=== PATIENT | male | born 1945 | race American Indian/Alaskan Native ===

== ENCOUNTER 2020-10-08 10:47 | Inpatient (IN) ==
--- NOTE | 2020-10-08 10:59 | Emergency Department Note ---
Lower Extremity Injury HPI General Chief Complaint: Extremity Injury, Lower Stated Complaint: right hip pain Time Seen by Provider: 10/08/20 10:57 Source: patient Mode of arrival: wheelchair Limitations: no limitations History of Present Illness HPI Narrative: This is an unfortunate 74-year-old male who was brought in by EMS today after he was found lying on his floor and unable to ambulate. Patient states that he is been unable to walk for the past 4 days and has been unable to eat or drink secondary to right hip pain. The patient suffered a femur fracture in the with a subsequent ORIF of his femur. He was seen in August in our ER for right hip pain, was ruled out for fracture. Patient lives alone at home. He does have cousins in the area, but they do not provide assistance regularly. He is a bit confused and cannot recall things like what he used to do for living, or tell me why he has a large incision to his left hip. He does know he is in [place]. He sees the [facility] clinic and he is on a multitude of prescriptions including mirtazapine, tizanidine, trazodone, and tramadol. He cannot remember which one of these he is taken. Rest of his history is difficult to obtain secondary to his altered mental status. Related Data Home Medications Medication Instructions Recorded Confirmed atorvastatin 10 mg PO QDAY 10/08/20 10/08/20 meloxicam 15 mg PO QDAY 10/08/20 10/08/20 mirtazapine 15 mg PO QDAY 10/08/20 10/08/20 tizanidine 4 mg PO Q6H PRN 10/08/20 10/08/20 tramadol 50 mg PO Q8H PRN 10/08/20 10/08/20 trazodone 50 mg PO QDAY 10/08/20 10/08/20 Allergies Allergy/AdvReac Type Severity Reaction Status Date / Time No Known Drug Allergies Allergy Verified 10/08/20 10:51 Review of Systems ROS ROS Narrative: Narrative: Limitations: ROS unobtainable due to patients medical condition [facility] Narrative Patient History Narrative: Narrative: Medical/Surgical/Family History All Active Problems (Updated 10/08/20 @ 19:33 by Beverly Villagomez PA-C) Pain in right thigh (Acute) History of femur fracture (Acute) Osteoarthritis (Acute) Localized swelling of both lower extremities (Acute) Joint pain of right hip on movement (Acute) Alteration in self-care ability (Acute) Ambulatory dysfunction (Acute) Rhabdomyolysis (Acute) Osteoarthritis of knees, bilateral (Acute) Prediabetes (Acute) Essential hypertension (Acute) Medical History Chronic right hip pain (Acute) Essential hypertension (Acute) Osteoarthritis of knees, bilateral (Acute) Prediabetes (Acute) Social History Smoking Status: Never smoker Exam Narrative Narrative: General: AOx3, NAD, nontoxic appearing. Confused and lethargic. HEENT: PERRLA, EOMI, normocephalic. Very dry mucous membranes. Normal facies and extremely poor dentition with multiple missing teeth.. Chest: Symmetric, no pain to palpation Respiratory: Lungs clear to auscultation bilaterally. No respiratory distress. Unlabored breathing. Heart: Regular rate and rhythm, no murmurs/clicks/rubs. Abdomen: Non-tender, Non distended, normal bowel tones. No organomegaly. Extremities: Warm and well perfused. No edema. DP 2+ bilaterally. No venous stasis. Pelvis: No deformities Right lower extremity: Without deformity or evidence of dislocation. He is painful to palpation along the anterior femur and into the right groin. He has pain with internal rotation of the hip. Knee flexion within normal limits. No pain with palpation of the knee joint or patella. Neuro: No focal deficits. Cranial nerves II-XII normal. Moving all fours with strength 5 out of 5 bilaterally to the extremities. Skin: Warm dry, excoriations noted to the bilateral lower extremities, no cyanosis. No erythema, no evidence of cellulitis. Psych: Confused, lethargic Heme/Lymph: No bruising General Limitations: no limitations Course Course Course Narrative: 74-year-old male presents via EMS with severe right hip pain, ambulatory dysfunction, and significant self-care deficits. Reevaluation(s) Reevaluation #1: Team basic labs, CK to query rhabdomyolysis, chest x-ray, UA IV fluids Reevaluation #2: Laboratory data reveals a mild leukocytosis with a high neutrophil count. He has an elevated procalcitonin of 0.25. He has a mild rhabdo with a CK of 406. UA is still pending. Chest x-ray shows prominent interstitial lung markings bilaterally, possible pneumonia. X-ray of the right hip and bilateral pelvis reveals no new fractures. There is a intertrochanteric nail in the right femur, and there is evidence of a greater trochanteric and right acetabular ORIF without evidence of associated fracture. This patient has altered mental status with profound self-care deficits, ambulatory dysfunction, and mild rhabdomyolysis with infection and SIRS. Source could be lung versus a urosepsis. UA is still pending. The patient is going to need admission and likely placement so we will order the 2-hour Covid rule out. Once UA results will place call to hospitalist for admission. -We will give 2 g IV Rocephin now x1 dose -Blood cultures x2 in the setting of hardware (these were collected post IV Rocephin) -Check a CRP Reevaluation #3: The patient is interviewed after he has been given IV fluids and antibiotics. He is much more alert and able to tell me the month, year, and his location. He states that his pain has been ongoing for anywhere from 3 to 4 months. There was no traumatic injury. He denies fever/chills/sweats. Vital Signs Vital signs: Vital Signs Temperature 97.9 F 10/08/20 10:48 Pulse Rate 90 10/08/20 10:48 Respiratory Rate 16 10/08/20 10:48 Blood Pressure 125/86 10/08/20 10:48 Pulse Oximetry (%) 98 10/08/20 10:48 Temperature 97.9 F 10/08/20 10:48 Pulse Rate 86 10/08/20 18:31 Respiratory Rate 24 H 10/08/20 18:31 Blood Pressure 132/86 10/08/20 18:31 Pulse Oximetry (%) 99 10/08/20 18:31 [facility] Narrative Medical decision making narrative: Right hip and lower extremity pain Ambulatory dysfunction Self-care deficits Mild rhabdomyolysis SIRS and infection Source of infection is not clear at this time. Chest x-ray suggested possible pneumonia; however the patient's clinical exam is unremarkable and he has been satting on room air at normal levels. The patient does have indwelling hardware with complaints of right hip and leg pain. I suppose it is possible this could be an osteomyelitis. He does have elevated procalcitonin and a leukocytosis with left shift. Regardless, he has significant self-care deficits with mild rhabdomyolysis from downtime on the floor. He does not have a caregiver at home and is not a safe discharge. He will need admission for ongoing infectious work-up, antibiotic therapies, and PT OT. -The patient is signed out to the hospitalist and admitted -Given IV Toradol and Dilaudid for pain -Blood cultures x2 are pending -CRP is pending -Cepheid Covid screen is pending Lab Data Result diagrams: 10/08/20 11:46 10/08/20 11:46 Labs: Lab Results 10/08/20 10/08/20 10/08/20 Range/Units 11:46 11:46 11:46 WBC 15.0 H (4.5-11.0) K/mcL RBC 3.99 L (4.50-5.90) M/mcL Hgb 11.4 L (13.5-16.5) g/dL Hct 34.0 L (41.0-55.0) % MCV 85.2 (80.0-100.0) fL MCH 28.6 (26.0-34.0) pg MCHC 33.5 (31.0-36.0) g/dL RDW 16.3 H (11.5-14.5) % Plt Count 327 (140-440) K/mcL MPV 9.9 (7.4-10.4) fL Neut % (Auto) 82.4 H (38.0-78.0) % Lymph % (Auto) 8.6 L (15.0-49.0) % [place] % (Auto) 8.6 (1.0-12.0) % Eos % (Auto) 0.1 (0.0-7.0) % Baso % (Auto) 0.3 (0.0-2.0) % Lymph # (Auto) 1.29 L (1.50-4.80) K/mcL [place] # (Auto) 1.30 H (0.10-0.90) K/mcL Eos # (Auto) 0.01 (0.00-0.70) K/mcL Baso # (Auto) 0.04 (0.00-0.20) K/mcL Absolute Neutrophils 12.40 H (1.80-8.00) K/mcL VBG Lactic Acid (0.5-2.0) mmol/L Sodium 138 (133-145) mmol/L Potassium 4.2 (3.3-5.1) mmol/L Chloride 100 (96-108) mmol/L Carbon Dioxide 23 (22-30) mmol/L Anion Gap 15.0 (8.0-16.0) BUN 17 (8-23) mg/dL Creatinine 0.8 (0.7-1.2) mg/dL GFR Calculation 88 Glucose 107 H (70-105) mg/dL Calcium 8.6 (8.6-10.4) mg/dL Total Bilirubin 0.7 (0.1-1.0) mg/dL AST 48 H (<40) U/L ALT 10 (<40) U/L Alkaline Phosphatase 728 H (39-117) U/L Total Creatine Kinase 406 H (24-195) U/L C-Reactive Protein (0.03-0.80) mg/dL Total Protein 6.3 (5.9-8.4) gm/dL Albumin 3.1 L (3.2-5.2) gm/dL Globulin 3.2 (2.2-3.7) gm/dL Albumin/Globulin Ratio 1.0 (1.0-2.3) Procalcitonin (<0.10) ng/mL Urine Color Urine Appearance (Clear) Urine pH (5.0-9.0) Ur Specific [place] (1.000-1.035) Urine Protein (Negative) mg/dL Urine Glucose (UA) (Negative) mg/dL Urine Ketones (Negative) mg/dL Urine Occult Blood (Negative) mg/dL Urine Nitrate (Negative) Urine Bilirubin (Negative) mg/dL Urine Urobilinogen mg/dL Ur Leukocyte Esterase (Negative) /ug Urine RBC (0-3) /hpf Urine WBC (0-4) /hpf Ur Squamous Epith Cells (0-4) /hpf Ur Transition Epith Cell (0-2) /hpf Urine Bacteria (0) /hpf Hyaline Casts (0-2) /lph Urine Mucus (None) /hpf Ur Culture Indicated? 10/08/20 10/08/20 10/08/20 Range/Units 11:46 15:40 16:15 WBC (4.5-11.0) K/mcL RBC (4.50-5.90) M/mcL Hgb (13.5-16.5) g/dL Hct (41.0-55.0) % MCV (80.0-100.0) fL MCH (26.0-34.0) pg MCHC (31.0-36.0) g/dL RDW (11.5-14.5) % Plt Count (140-440) K/mcL MPV (7.4-10.4) fL Neut % (Auto) (38.0-78.0) % Lymph % (Auto) (15.0-49.0) % [place] % (Auto) (1.0-12.0) % Eos % (Auto) (0.0-7.0) % Baso % (Auto) (0.0-2.0) % Lymph # (Auto) (1.50-4.80) K/mcL [place] # (Auto) (0.10-0.90) K/mcL Eos # (Auto) (0.00-0.70) K/mcL Baso # (Auto) (0.00-0.20) K/mcL Absolute Neutrophils (1.80-8.00) K/mcL VBG Lactic Acid 2.1 H (0.5-2.0) mmol/L Sodium (133-145) mmol/L Potassium (3.3-5.1) mmol/L Chloride (96-108) mmol/L Carbon Dioxide (22-30) mmol/L Anion Gap (8.0-16.0) BUN (8-23) mg/dL Creatinine (0.7-1.2) mg/dL GFR Calculation Glucose (70-105) mg/dL Calcium (8.6-10.4) mg/dL Total Bilirubin (0.1-1.0) mg/dL AST (<40) U/L ALT (<40) U/L Alkaline Phosphatase (39-117) U/L Total Creatine Kinase (24-195) U/L C-Reactive Protein 24.30 H (0.03-0.80) mg/dL Total Protein (5.9-8.4) gm/dL Albumin (3.2-5.2) gm/dL Globulin (2.2-3.7) gm/dL Albumin/Globulin Ratio (1.0-2.3) Procalcitonin (<0.10) ng/mL Urine Color Yellow Urine Appearance Clear (Clear) Urine pH 6.0 (5.0-9.0) Ur Specific [place] 1.017 (1.000-1.035) Urine Protein 30 A (Negative) mg/dL Urine Glucose (UA) Negative (Negative) mg/dL Urine Ketones 5 A (Negative) mg/dL Urine Occult Blood Negative (Negative) mg/dL Urine Nitrate Negative (Negative) Urine Bilirubin Negative (Negative) mg/dL Urine Urobilinogen 2.0 A mg/dL Ur Leukocyte Esterase Negative (Negative) /ug Urine RBC 2 (0-3) /hpf Urine WBC 10 H (0-4) /hpf Ur Squamous Epith Cells 2 (0-4) /hpf Ur Transition Epith Cell < 1 (0-2) /hpf Urine Bacteria None (0) /hpf Hyaline Casts 6 H (0-2) /lph Urine Mucus Many A (None) /hpf Ur Culture Indicated? yes 10/08/20 Range/Units 16:15 WBC (4.5-11.0) K/mcL RBC (4.50-5.90) M/mcL Hgb (13.5-16.5) g/dL Hct (41.0-55.0) % MCV (80.0-100.0) fL MCH (26.0-34.0) pg MCHC (31.0-36.0) g/dL RDW (11.5-14.5) % Plt Count (140-440) K/mcL MPV (7.4-10.4) fL Neut % (Auto) (38.0-78.0) % Lymph % (Auto) (15.0-49.0) % [place] % (Auto) (1.0-12.0) % Eos % (Auto) (0.0-7.0) % Baso % (Auto) (0.0-2.0) % Lymph # (Auto) (1.50-4.80) K/mcL [place] # (Auto) (0.10-0.90) K/mcL Eos # (Auto) (0.00-0.70) K/mcL Baso # (Auto) (0.00-0.20) K/mcL Absolute Neutrophils (1.80-8.00) K/mcL VBG Lactic Acid (0.5-2.0) mmol/L Sodium (133-145) mmol/L Potassium (3.3-5.1) mmol/L Chloride (96-108) mmol/L Carbon Dioxide (22-30) mmol/L Anion Gap (8.0-16.0) BUN (8-23) mg/dL Creatinine (0.7-1.2) mg/dL GFR Calculation Glucose (70-105) mg/dL Calcium (8.6-10.4) mg/dL Total Bilirubin (0.1-1.0) mg/dL AST (<40) U/L ALT (<40) U/L Alkaline Phosphatase (39-117) U/L Total Creatine Kinase (24-195) U/L C-Reactive Protein (0.03-0.80) mg/dL Total Protein (5.9-8.4) gm/dL Albumin (3.2-5.2) gm/dL Globulin (2.2-3.7) gm/dL Albumin/Globulin Ratio (1.0-2.3) Procalcitonin 0.25 H (<0.10) ng/mL Urine Color Urine Appearance (Clear) Urine pH (5.0-9.0) Ur Specific [place] (1.000-1.035) Urine Protein (Negative) mg/dL Urine Glucose (UA) (Negative) mg/dL Urine Ketones (Negative) mg/dL Urine Occult Blood (Negative) mg/dL Urine Nitrate (Negative) Urine Bilirubin (Negative) mg/dL Urine Urobilinogen mg/dL Ur Leukocyte Esterase (Negative) /ug Urine RBC (0-3) /hpf Urine WBC (0-4) /hpf Ur Squamous Epith Cells (0-4) /hpf Ur Transition Epith Cell (0-2) /hpf Urine Bacteria (0) /hpf Hyaline Casts (0-2) /lph Urine Mucus (None) /hpf Ur Culture Indicated? Discharge Plan Patient/Caregiver Discharge Instructions Pt seen by [employer]/PA only: Yes Clinical Impression: Joint pain of right hip on movement, History of femur fracture, Alteration in self-care ability, Ambulatory dysfunction, Rhabdomyolysis Patient Disposition: Xfer As Inpt ([facility]) Condition: Fair Follow up with: No,PCP [Primary Care Provider] - Prescriptions: No Action trazodone 50 mg Tablet 50 mg PO QDAY RF: 0 atorvastatin 10 mg tablet 10 mg PO QDAY RF: 0 meloxicam 15 mg tablet 15 mg PO QDAY RF: 0 tramadol 50 mg Tablet 50 mg PO Q8H PRN (Reason: Pain) RF: 0 mirtazapine 15 mg Tablet 15 mg PO QDAY RF: 0 tizanidine 4 mg Capsule 4 mg PO Q6H PRN (Reason: .) RF: 0
--- NOTE | 2020-10-08 11:45 | XRay Report ---
INDICATION: hip pain TECHNIQUE: AP pelvis. AP and lateral right hip COMPARISON: Previous right femur dated 09/07/2020 FINDINGS: There is an intramedullary nail within the right femur. Caudal aspects of the intramedullary nail are not included on this examination. There is deformity of the proximal right femoral diaphysis consistent with healed fracture. There is mild degenerative narrowing of the right hip joint space. No right hip fracture. No evidence for avascular necrosis Previous open reduction and internal fixation of left greater trochanteric fracture and acetabular fracture. No acute fracture. No hip fracture. No lytic lesion. Sacrum is negative. There is prominent fecal material overlying the sacrum and right ilium IMPRESSION: 1. No acute abnormality 2. Previous open reduction and internal fixation of left acetabular fracture and greater trochanteric fracture. Intramedullary nail in the right femur with healed fracture deformity of the proximal right femoral diaphysis Interpreted and Authenticated by: Leonidas Gr 10/08/20
[2020-10-08] MEDS ORDERED: 0.9 % SODIUM CHLORIDE 1,000 ML IV ONE ×2 (12:49→14:42)
[2020-10-08 12:50] LABS: Basophils # (Auto) 0.04 K/mcL (0.00-0.20); Basophils % (Auto) 0.3 % (0.0-2.0); Eosinophils # (Auto) 0.01 K/mcL (0.00-0.70); Eosinophils % (Auto) 0.1 % (0.0-7.0); Hemoglobin 11.4 g/dL (13.5-16.5); Lymphocytes # (Auto) 1.29 K/mcL (1.50-4.80); Lymphocytes % (Auto) 8.6 % (15.0-49.0); Mean Cell Volume 85.2 fL (80.0-100.0); Mean Corpuscular HGB Conc 33.5 g/dL (31.0-36.0); Mean Platelet Volume 9.9 fL (7.4-10.4); Monocytes % (Auto) 8.6 % (1.0-12.0); Neutrophils % (Auto) 82.4 % (38.0-78.0); Platelet Count 327 K/mcL (140-440); RBC 3.99 M/mcL (4.50-5.90); Red Cell Distribution Width 16.3 % (11.5-14.5)
[2020-10-08 13:13] LABS: ALT/SGPT 10 U/L (<40); AST/SGOT 48 U/L (<40); Albumin 3.1 gm/dL (3.2-5.2); Alkaline Phosphatase 728 U/L (39-117); Bilirubin,Total 0.7 mg/dL (0.1-1.0); Blood Urea Nitrogen 17 mg/dL (8-23); Calcium 8.6 mg/dL (8.6-10.4); Carbon Dioxide 23 mmol/L (22-30); Chloride 100 mmol/L (96-108); Globulin 3.2 gm/dL (2.2-3.7); Glomerular Filtration Rate 88; Glucose 107 mg/dL (70-105)
--- NOTE | 2020-10-08 15:02 | XRay Report ---
INDICATION: leukocytosis TECHNIQUE: AP portable upright chest x-ray COMPARISON: None FINDINGS: Lungs:Interstitial markings are prominent bilaterally. This may be a chronic abnormality in this 74-year-old patient. If covid pneumonia is suspected follow-up examination or CT scan may be of help. No parenchymal consolidation. No interval mass Heart, vascular:No significant cardiomegaly. Pulmonary vascularity is normal. No pulmonary edema or pulmonary congestion Mediastinum, ozzie:No mediastinal widening. No hilar mass Pleura:No pleural fluid. No pleural-based mass or calcification Skeletal:Negative. IMPRESSION: 1. Interstitial abnormality bilaterally. 2. This may be a chronic abnormality. Covid pneumonia is not excluded Interpreted and Authenticated by: Leonidas Gr 10/08/20
[2020-10-08] MEDS ORDERED: cefTRIAXone 2 GM in DEXTROSE 5% IN WATER 50 ML IV ONE (16:29)
[2020-10-08 16:56] LABS: Appearance,Urine CLEAR (Clear); Bilirubin,Urine Negative (Negative); Color,Urine YELLOW; Culture Indicated,Urine yes; Glucose,Urine (UA) Negative (Negative); Ketones,Urine 5 mg/dL (Negative); Leukocyte Esterase,Urine Negative /ug (Negative); Mucus,Urine MANY /hpf; Nitrate,Urine Negative (Negative); Protein,Urine 30 mg/dL (Negative); Specific Gravity,Urine 1.017 (1.000-1.035); Urine Blood Negative (Negative); Urine Hyaline Cast 6 /lph (0-2); Urine RBC 2 /hpf (0-3); Urine Squamous Epithelial Cell 2 /hpf (0-4); Urine Transitional Epi Cells < 1 /hpf (0-2); Urine WBC 10 /hpf (0-4)
[2020-10-08] MEDS ORDERED: KETOROLAC 30 MG/ML VIAL IV ONE (18:05)
--- NOTE | 2020-10-08 19:31 | Internal Med History&Physical ---
HPI History of Present Illness Patient information: Note initiated : 10/08/20 at 7:23 pm Service Date, if different from initiated Date: [] Patient: Larry Barger a 74 y/o M admitted on for right hip pain. Chief Complaint: [] History of present illness: Mr. Barger is a 74 year old M with history of HLD/chronic pain/anxiety who has been experiencing significant right hip along with right knee pain that has gradually limited his activities of daily living. He lives alone and over the past 4-month has not been able to take care of self due to pain related restricting mobility. Over the last 4 days patient has been so weak that he has been laying on the blanket on the floor and has been crawling to get to the bathroom and food. In the last 24 hours he has not eating or drank anything. He was brought into the ER initial work-up was consistent with severe dehydration. White count 15,000 but no clear source of infection identified. Patient was started on antibiotic coverage after cultures were drawn. Patient received crystalloids. Lactic acid 2.1, elevated CK and procalcitonin. UA significant for pyuria. Chest imaging suspicious of interstitial infiltrate. Hospital service was consulted for admission in light of above At the time of my evaluation patient is very anxious and was able to endorse history as above. He mentions about his degenerative knee which he has not been able to see orthopedics. He since has been struggling to get by on a daily basis. He otherwise denies fever, chills, bloody stool, bloody urine, hemoptysis, headache, rash. Denies joint swelling but endorses to bilateral knee pain and right groin pain. Review of systems 10 point review system was performed and is negative except for ones discussed above PFSH PFSH All Active Problems Pain in right thigh (Acute) History of femur fracture (Acute) Osteoarthritis (Acute) Localized swelling of both lower extremities (Acute) Osteoarthritis of knees, bilateral (Acute) Prediabetes (Acute) Essential hypertension (Acute) Medical History Chronic right hip pain (Acute) Essential hypertension (Acute) Osteoarthritis of knees, bilateral (Acute) Prediabetes (Acute) Social History smoking status: Never smoker MEDS/ALLERGIES Home Medications and Allergies Home Medications Medication Instructions Recorded Confirmed Type atorvastatin 10 mg PO QDAY 10/08/20 10/08/20 History meloxicam 15 mg PO QDAY 10/08/20 10/08/20 History mirtazapine 15 mg PO QDAY 10/08/20 10/08/20 History tizanidine 4 mg PO Q6H PRN 10/08/20 10/08/20 History tramadol 50 mg PO Q8H PRN 10/08/20 10/08/20 History trazodone 50 mg PO QDAY 10/08/20 10/08/20 History Allergies Allergy/AdvReac Type Severity Reaction Status Date / Time No Known Drug Allergies Allergy Verified 10/08/20 10:51 EXAM Constitutional Vitals: Temp Pulse Resp BP Pulse Ox 97.9 F 86 24 H 132/86 99 10/08/20 10:48 10/08/20 18:31 10/08/20 18:31 10/08/20 18:31 10/08/20 18:31 Weak lethargic and fatigued Head normocephalic Oral cavity dry No ear or nose discharge Eye movement symmetrical Neck supple no lymphadenopathy S1-S2 regular Nonlabored breathing Nondistended nontender abdomen Lower extremity significant tenderness to passive range of motion at the knee joint/right hip. No swelling/erythema or edema Skin no suspicious lesion Psych anxious but much more alert since arrival Neuro moving all 4 extremities DATA Data Completed and Pending Labs: Labs from last 24 hours 10/08/20 10/08/20 10/08/20 16:15 16:15 15:40 WBC RBC Hgb Hct MCV MCH MCHC RDW Plt Count MPV Neut % (Auto) Lymph % (Auto) [place] % (Auto) Eos % (Auto) Baso % (Auto) Lymph # (Auto) [place] # (Auto) Eos # (Auto) Baso # (Auto) Absolute Neutrophils VBG Lactic Acid 2.1 H Sodium Potassium Chloride Carbon Dioxide Anion Gap BUN Creatinine GFR Calculation Glucose Calcium Total Bilirubin AST ALT Alkaline Phosphatase Total Creatine Kinase C-Reactive Protein Total Protein Albumin Globulin Albumin/Globulin Ratio Procalcitonin 0.25 H Urine Color Yellow Urine Appearance Clear Urine pH 6.0 Ur Specific [place] 1.017 Urine Protein 30 A Urine Glucose (UA) Negative Urine Ketones 5 A Urine Occult Blood Negative Urine Nitrate Negative Urine Bilirubin Negative Urine Urobilinogen 2.0 A Ur Leukocyte Esterase Negative Urine RBC 2 Urine WBC 10 H Ur Squamous Epith Cells 2 Ur Transition Epith Cell < 1 Urine Bacteria None Hyaline Casts 6 H Urine Mucus Many A Ur Culture Indicated? yes Urine Myoglobin 10/08/20 10/08/20 10/08/20 15:40 11:46 11:46 WBC RBC Hgb Hct MCV MCH MCHC RDW Plt Count MPV Neut % (Auto) Lymph % (Auto) [place] % (Auto) Eos % (Auto) Baso % (Auto) Lymph # (Auto) [place] # (Auto) Eos # (Auto) Baso # (Auto) Absolute Neutrophils VBG Lactic Acid Sodium Potassium Chloride Carbon Dioxide Anion Gap BUN Creatinine GFR Calculation Glucose Calcium Total Bilirubin AST ALT Alkaline Phosphatase Total Creatine Kinase 406 H C-Reactive Protein 24.30 H Total Protein Albumin Globulin Albumin/Globulin Ratio Procalcitonin Urine Color Urine Appearance Urine pH Ur Specific [place] Urine Protein Urine Glucose (UA) Urine Ketones Urine Occult Blood Urine Nitrate Urine Bilirubin Urine Urobilinogen Ur Leukocyte Esterase Urine RBC Urine WBC Ur Squamous Epith Cells Ur Transition Epith Cell Urine Bacteria Hyaline Casts Urine Mucus Ur Culture Indicated? Urine Myoglobin Pending 10/08/20 10/08/20 11:46 11:46 WBC 15.0 H RBC 3.99 L Hgb 11.4 L Hct 34.0 L MCV 85.2 MCH 28.6 MCHC 33.5 RDW 16.3 H Plt Count 327 MPV 9.9 Neut % (Auto) 82.4 H Lymph % (Auto) 8.6 L [place] % (Auto) 8.6 Eos % (Auto) 0.1 Baso % (Auto) 0.3 Lymph # (Auto) 1.29 L [place] # (Auto) 1.30 H Eos # (Auto) 0.01 Baso # (Auto) 0.04 Absolute Neutrophils 12.40 H VBG Lactic Acid Sodium 138 Potassium 4.2 Chloride 100 Carbon Dioxide 23 Anion Gap 15.0 BUN 17 Creatinine 0.8 GFR Calculation 88 Glucose 107 H Calcium 8.6 Total Bilirubin 0.7 AST 48 H ALT 10 Alkaline Phosphatase 728 H Total Creatine Kinase C-Reactive Protein Total Protein 6.3 Albumin 3.1 L Globulin 3.2 Albumin/Globulin Ratio 1.0 Procalcitonin Urine Color Urine Appearance Urine pH Ur Specific [place] Urine Protein Urine Glucose (UA) Urine Ketones Urine Occult Blood Urine Nitrate Urine Bilirubin Urine Urobilinogen Ur Leukocyte Esterase Urine RBC Urine WBC Ur Squamous Epith Cells Ur Transition Epith Cell Urine Bacteria Hyaline Casts Urine Mucus Ur Culture Indicated? Urine Myoglobin A/P Narrative A/P Narrative: * Complicated UTI-continue antibiotic coverage. De-escalate based on sensitivities * Systemic inflammatory response syndrome with elevated leukocytosis/endorgan dysfunction including elevated LFTs. * Mild rhabdomyolysis-secondary to weakness and laying on the floor. Crystalloids * Generalized weakness-/failure to thrive secondary to severe DJD/restricted mobility. Start physical therapy/nutrition support * DJD continue meloxicam/tramadol/tizanidine * Hyperlipemia continue statin * Prophylaxis heparin Plan * Inpatient admission * Antibiotic coverage * PT OT nutrition support * Pre-existing medical condition management home medications * Discharge planning likely SNF due to profound weakness and inability to take care of self Time Spent With Patient Time: Total time spent is greater than 50% in coordination of care (as documented) at patient's floor/unit and/or counseling patient:
[2020-10-08] MEDS ORDERED: ACETAMINOPHEN 650 MG/65 ML BAG IV PRN (20:46)
[2020-10-08] MEDS ORDERED: ONDANSETRON 4 MG ODT TABLET SL PRN (20:46)
[2020-10-08] MEDS ORDERED: POTASSIUM CHLORIDE 40 MEQ in DEXTROSE 5% IN WATER 500 ML IV PRN (20:46)
[2020-10-08] MEDS ORDERED: MAGNESIUM SULFATE 2 GM/50 ML BAG IV PRN (20:46)
[2020-10-08] MEDS ORDERED: POTASSIUM CHLORIDE 20 MEQ PACKET PO PRN (20:46)
[2020-10-08] MEDS ORDERED: POLYETHYLENE GLYCOL 3350 17 GM PACKET PO PRN (20:46)
[2020-10-08] MEDS ORDERED: ACETAMINOPHEN 325 MG TABLET PO PRN (20:46)
[2020-10-08] MEDS ORDERED: MELATONIN 3 MG TABLET PO PRN (20:46)
[2020-10-08] MEDS ORDERED: ONDANSETRON 4 MG/2 ML VIAL IV PRN (20:46)
[2020-10-08] MEDS ORDERED: traMADol 50 MG TABLET PO PRN (20:46)
[2020-10-08] MEDS ORDERED: BISACODYL 10 MG SUPP.RECT PR PRN (20:46)
[2020-10-08] MEDS ORDERED: tiZANidine 4 MG TABLET PO PRN (21:14)
[2020-10-08] MEDS: 0.9 % SODIUM CHLORIDE 10 ML SYRINGE IV SCH (22:05)
[2020-10-08] MEDS: HEPARIN 5,000 UNIT/ML VIAL SQ SCH (22:05)
[2020-10-08] MEDS: CYANOCOBALAMIN (VITAMIN B-12) 500 MCG TABLET PO SCH (22:05)
[2020-10-08] MEDS: SENNOSIDES/DOCUSATE SODIUM 1 TAB TABLET PO SCH (22:06)
[2020-10-08] MEDS: 0.9 % SODIUM CHLORIDE 1,000 ML IV SCH (22:06)
[2020-10-08] MEDS: traZODone HCL 50 MG TABLET PO SCH (22:06)
[2020-10-08] MEDS: DOCUSATE SODIUM 100 MG CAPSULE PO SCH (22:06)
[2020-10-09] MEDS: 0.9 % SODIUM CHLORIDE 10 ML SYRINGE IV SCH ×3 (04:00→20:34)
[2020-10-09] MEDS: 0.9 % SODIUM CHLORIDE 1,000 ML IV SCH ×3 (05:33→17:54)
[2020-10-09 07:02] LABS: Basophils # (Auto) 0.04 K/mcL (0.00-0.20); Basophils % (Auto) 0.3 % (0.0-2.0); Eosinophils # (Auto) 0.02 K/mcL (0.00-0.70); Eosinophils % (Auto) 0.2 % (0.0-7.0); Hematocrit 29.7 % (41.0-55.0); Hemoglobin 9.2 g/dL (13.5-16.5); Lymphocytes # (Auto) 0.89 K/mcL (1.50-4.80); Lymphocytes % (Auto) 7.6 % (15.0-49.0); Mean Cell Volume 82.3 fL (80.0-100.0); Mean Platelet Volume 10.2 fL (7.4-10.4); Monocytes # (Auto) 0.77 K/mcL (0.10-0.90); Monocytes % (Auto) 6.6 % (1.0-12.0); Neutrophils % (Auto) 85.3 % (38.0-78.0); Platelet Count 321 K/mcL (140-440); RBC 3.61 M/mcL (4.50-5.90); WBC 11.7 K/mcL (4.5-11.0)
[2020-10-09 07:50] LABS: ALT/SGPT 9 U/L (<40); AST/SGOT 29 U/L (<40); Albumin 2.5 gm/dL (3.2-5.2); Albumin/Globulin Ratio 0.9 (1.0-2.3); Alkaline Phosphatase 568 U/L (39-117); Bilirubin,Direct 0.3 mg/dL (<0.3); Bilirubin,Total 0.5 mg/dL (0.1-1.0); Blood Urea Nitrogen 16 mg/dL (8-23); Calcium 8.1 mg/dL (8.6-10.4); Carbon Dioxide 22 mmol/L (22-30); Chloride 104 mmol/L (96-108); Globulin 2.7 gm/dL (2.2-3.7); Glomerular Filtration Rate 93; Glucose 82 mg/dL (70-105); Lactate Dehydrogenase 1138 U/L (135-225); Phosphorous 3.4 mg/dL (2.5-4.5); Triglycerides 118 mg/dL (<150); Uric Acid 6.3 mg/dL (2.5-8.0)
[2020-10-09] MEDS: ATORVASTATIN 10 MG TABLET PO SCH (08:45)
[2020-10-09] MEDS: THIAMINE 100 MG TABLET PO SCH (08:45)
[2020-10-09] MEDS: DOCUSATE SODIUM 100 MG CAPSULE PO SCH ×2 (08:45→20:33)
[2020-10-09] MEDS: MULTIVIT,THER IRON,CA,FA & MIN 1 TABLET PO SCH (08:45)
[2020-10-09] MEDS: CYANOCOBALAMIN (VITAMIN B-12) 500 MCG TABLET PO SCH ×2 (08:45→20:34)
[2020-10-09] MEDS: FOLIC ACID 1 MG TABLET PO SCH (08:45)
[2020-10-09] MEDS: MELOXICAM 7.5 MG TABLET PO SCH (08:45)
[2020-10-09] MEDS: MIRTAZAPINE 15 MG TABLET PO SCH (08:45)
[2020-10-09] MEDS: HEPARIN 5,000 UNIT/ML VIAL SQ SCH ×2 (08:46→20:33)
[2020-10-09] MEDS: cefTRIAXone 2 GM in DEXTROSE 5% IN WATER 50 ML IV SCH (08:46)
--- NOTE | 2020-10-09 16:02 | Internal Med Progress Note ---
SUBJECTIVE Subjective Patient information: Note initiated : 10/09/20 at 3:59 pm Service Date, if different from initiated Date: [] Patient: Larry Barger a 74 y/o M admitted on 10/08/20 for right hip pain. Chief Complaint: [] Interval history: History of present illness: Mr. Barger is a 74 year old M with history of HLD/chronic pain/anxiety who has been experiencing significant right hip along with right knee pain that has gradually limited his activities of daily living. He lives alone and over the past 4-month has not been able to take care of self due to pain related restricting mobility. Over the last 4 days patient has been so weak that he has been laying on the blanket on the floor and has been crawling to get to the bathroom and food. In the last 24 hours he has not eating or drank anything. He was brought into the ER initial work-up was consistent with severe dehydration. White count 15,000 but no clear source of infection identified. Patient was started on antibiotic coverage after cultures were drawn. Patient received crystalloids. Lactic acid 2.1, elevated CK and procalcitonin. UA significant for pyuria. Chest imaging suspicious of interstitial infiltrate. Hospital service was consulted for admission in light of above At the time of my evaluation patient is very anxious and was able to endorse history as above. He mentions about his degenerative knee which he has not been able to see orthopedics. He since has been struggling to get by on a daily basis. He otherwise denies fever, chills, bloody stool, bloody urine, hemoptysis, headache, rash. Denies joint swelling but endorses to bilateral kn ee pain and right groin pain. 10/09-patient doing a lot better. Ongoing therapies. Improved leukocytosis at 11.7 on antibiotic coverage. Mentation improved. LFTs downtrending. COVID-19 positive. On contact precautions. Constitutional Vitals: Vital Signs Temp Pulse Resp BP Pulse Ox 98.3 F 89 20 135/88 99 10/09/20 12:00 10/09/20 12:00 10/09/20 12:00 10/09/20 12:00 10/09/20 12:00 Period Temp Pulse Resp BP Sys/Hair Pulse Ox Last 24 Hr 98.3 F-99.2 F 80-102 13-27 118-151/70-88 96-100 Intake and Output 10/09/20 10/09/20 10/09/20 05:59 13:59 21:59 Intake Total 500 1388 Output Total 200 Balance 300 1388 Alert nonlabored breathing No anxiety Frail and weak elderly No lymphedema Intake & Output: Intake & Output 10/09/20 10/09/20 10/09/20 05:59 13:59 21:59 Intake Total 500 1388 Output Total 200 Balance 300 1388 Intake: IV 1028 Sodium Chloride 0.9% 1,000 ml @ 978 100 mls/hr IV .Q10H [facility] Rx#: [id number] Rocephin 2 gm In Dextrose 5% in 50 Water 50 ml @ 100 mls/hr IV Q24H [facility] Rx#:[id number] Oral 500 360 Output: Urine Catheter Amount 200 Other: Meal Breakfast Percent of Meal Consumed 50% Feeding Ability Independent Urine Appearance Clear Clear Uretheral (Álvarez) Clear Urine Color Dark Yellow Dark Yellow Uretheral (Álvarez) Dark Yellow Urine Odor Strong Strong OBJ DATA Labs CBC & Chem 7: 10/09/20 05:41 10/09/20 05:41 Labs: Abnormal Lab Results 10/09/20 10/09/20 10/08/20 05:41 05:41 16:15 WBC 11.7 H RBC 3.61 L Hgb 9.2 L Hct 29.7 L MCH 25.5 L RDW 16.0 H Neut % (Auto) 85.3 H Lymph % (Auto) 7.6 L Lymph # (Auto) 0.89 L [place] # (Auto) Absolute Neutrophils 9.94 H VBG Lactic Acid Glucose Calcium 8.1 L Direct Bilirubin 0.3 H AST Alkaline Phosphatase 568 H Lactate Dehydrogenase 1138 H Total Creatine Kinase C-Reactive Protein Total Protein 5.2 L Albumin 2.5 L Albumin/Globulin Ratio 0.9 L Procalcitonin 0.25 H Urine Protein Urine Ketones Urine Urobilinogen Urine WBC Hyaline Casts Urine Mucus 10/08/20 10/08/20 10/08/20 16:15 15:40 11:46 WBC RBC Hgb Hct MCH RDW Neut % (Auto) Lymph % (Auto) Lymph # (Auto) [place] # (Auto) Absolute Neutrophils VBG Lactic Acid 2.1 H Glucose Calcium Direct Bilirubin AST Alkaline Phosphatase Lactate Dehydrogenase Total Creatine Kinase C-Reactive Protein 24.30 H Total Protein Albumin Albumin/Globulin Ratio Procalcitonin Urine Protein 30 A Urine Ketones 5 A Urine Urobilinogen 2.0 A Urine WBC 10 H Hyaline Casts 6 H Urine Mucus Many A 10/08/20 10/08/20 10/08/20 11:46 11:46 11:46 WBC 15.0 H RBC 3.99 L Hgb 11.4 L Hct 34.0 L MCH RDW 16.3 H Neut % (Auto) 82.4 H Lymph % (Auto) 8.6 L Lymph # (Auto) 1.29 L [place] # (Auto) 1.30 H Absolute Neutrophils 12.40 H VBG Lactic Acid Glucose 107 H Calcium Direct Bilirubin AST 48 H Alkaline Phosphatase 728 H Lactate Dehydrogenase Total Creatine Kinase 406 H C-Reactive Protein Total Protein Albumin 3.1 L Albumin/Globulin Ratio Procalcitonin Urine Protein Urine Ketones Urine Urobilinogen Urine WBC Hyaline Casts Urine Mucus Meds: Medications Acetaminophen (Tylenol) 650 mg PO Q4-6HP PRN; Protocol PRN Reason: Per Pain Protocol/Fever > 101 Last Admin: 10/09/20 04:22 Dose: 650 mg Documented by: Hydrocodone Bitart/Acetaminophen (Kaiser 5/325mg) 1 - 2 tab PO Q4HP PRN; Protocol PRN Reason: Per Pain Protocol Atorvastatin Calcium (Lipitor) 10 mg PO QDAY [facility] Last Admin: 10/09/20 08:45 Dose: 10 mg Documented by: Bisacodyl (Dulcolax) 10 mg NM Q2-3DAYS PRN PRN Reason: Constipation Cyanocobalamin (Vitamin B-12) 1,000 mcg PO BID [facility] Stop: 10/13/20 09:01 Last Admin: 10/09/20 08:45 Dose: 1,000 mcg Documented by: Docusate Sodium (Colace) 100 mg PO BID [facility] Last Admin: 10/09/20 08:45 Dose: 100 mg Documented by: Folic Acid (Folic Acid) 1 mg PO DAILY [facility] Last Admin: 10/09/20 08:45 Dose: 1 mg Documented by: Heparin Sodium (Porcine) (Heparin) 5,000 unit SQ Q12 [facility] Last Admin: 10/09/20 08:46 Dose: 5,000 unit Documented by: Ceftriaxone Sodium 2 gm/ (Dextrose) 50 mls @ 100 mls/hr IV Q24H [facility]; Protocol Last Infusion: 10/09/20 09:16 Dose: Infused Documented by: Potassium Chloride 40 meq/ (Dextrose) 520 mls @ 130 mls/hr IV UD PRN PRN Reason: K+ = or < 3.5 Acetaminophen (Ofirmev) 650 mg in 65 mls @ 130 mls/hr IV Q6HP PRN; Protocol PRN Reason: Per Pain Protocol/Fever > 101 Magnesium Sulfate (Magnesium Sulfate) 2 gm in 50 mls @ 50 mls/hr IV UD PRN PRN Reason: MG = or < 1.7 Sodium Chloride (Sodium Chloride 0.9%) 1,000 mls @ 100 mls/hr IV .Q10H [facility] Last Admin: 10/09/20 07:53 Dose: 100 mls/hr Documented by: Iron Carb/Multivit/[place]/Folic Acid (Multivitamin W/Minerals) 1 tab PO DAILY [facility] Last Admin: 10/09/20 08:45 Dose: 1 tab Documented by: Melatonin (Melatonin 3mg Tablet) 3 mg PO HSP PRN PRN Reason: Insomnia Meloxicam (Mobic) 15 mg PO QDAY [facility] Last Admin: 10/09/20 08:45 Dose: 15 mg Documented by: Mirtazapine (Remeron) 15 mg PO QDAY [facility] Last Admin: 10/09/20 08:45 Dose: 15 mg Documented by: Ondansetron HCl (Zofran Odt) 4 mg SL Q4-6HP PRN; Protocol PRN Reason: Nausea And Vomiting Ondansetron HCl (Zofran) 4 mg IV Q4-6HP PRN; Protocol PRN Reason: Nausea And Vomiting Polyethylene Glycol (Miralax) 17 gm PO DAILYP PRN PRN Reason: Constipation Potassium Chloride (Klor-Con) 40 meq PO DAILYP PRN PRN Reason: K+ < 3.5 Senna/Docusate Sodium (Senna Plus Tablet) 1 tab PO HS [facility] Last Admin: 10/08/20 22:06 Dose: Not Given Documented by: Sodium Chloride (Saline Flush) 10 ml IV Q8 [facility] Last Admin: 10/09/20 12:55 Dose: Not Given Documented by: Thiamine HCl (Vitamin B1) 100 mg PO DAILY [facility] Last Admin: 10/09/20 08:45 Dose: 100 mg Documented by: Tizanidine HCl (Zanaflex) 4 mg PO Q6HP PRN PRN Reason: MUSCLE SPASMS Tramadol HCl (Ultram) 50 mg PO Q4-6HP PRN; Protocol PRN Reason: Per Pain Protocol Trazodone HCl (Desyrel) 50 mg PO HS [facility] Last Admin: 10/08/20 22:06 Dose: 50 mg Documented by: A/P Narrative A/P Narrative: * Acute viral syndrome COVID-19 with weakness fatigue. Continue contact cautions/supportive management, antibiotics/crystalloid/dietary intervention * Complicated UTI-clinically improving on antibiotic coverage. De-escalate based on sensitivities * Systemic inflammatory response syndrome with elevated leukocytosis/endorgan dysfunction including elevated LFTs. * Mild rhabdomyolysis-clinically resolved with crystalloids * Elevated LFTs secondary to acute viral syndrome, improving * Generalized weakness-/failure to thrive secondary COVID-19 atop generalized deconditioning. Therapies as tolerated/nutrition support * DJD continue meloxicam/tramadol/tizanidine * Hyperlipemia continue statin * Prophylaxis heparin Plan * COVID-19 cautions * Antibiotic coverage * Directed therapies/dietary interventions * Pre-existing medical condition management home medications * Discharge planning likely SNF due to profound weakness and inability to take care of self Time Spent With Patient Time: Total time spent is greater than 50% in coordination of care (as documented) at patient's floor/unit and/or counseling patient: QUALITY VTE Deep Vein Thrombosis/Pulmonary Embolism Present on Admission: No
[2020-10-09] MEDS: SENNOSIDES/DOCUSATE SODIUM 1 TAB TABLET PO SCH (20:33)
[2020-10-09] MEDS: traZODone HCL 50 MG TABLET PO SCH (20:34)
[2020-10-10] MEDS: 0.9 % SODIUM CHLORIDE 1,000 ML IV SCH ×4 (03:31→23:32)
[2020-10-10] MEDS: 0.9 % SODIUM CHLORIDE 10 ML SYRINGE IV SCH ×3 (04:35→20:48)
--- NOTE | 2020-10-10 06:49 | XRay Report ---
INDICATION: Interval Change TECHNIQUE: AP portable semiupright chest x-ray COMPARISON: Previous chest x-ray dated 10/08/2020 FINDINGS: Lungs:Interstitial abnormality is essentially unchanged when allowances are made for differences in technique. Findings may be chronic but covid pneumonia is possible. Clinical correlation recommended Heart, vascular:No significant cardiomegaly. Pulmonary vascularity is normal. No pulmonary edema or pulmonary congestion Mediastinum, ozzie:No mediastinal widening. No hilar mass Pleura:No pleural fluid. No pleural-based mass or calcification Skeletal:Negative. IMPRESSION: 1. Interstitial abnormality is unchanged since 10/08/2020 2. No new abnormality Interpreted and Authenticated by: Leonidas Gr 10/10/20
[2020-10-10] MEDS ORDERED: FLU VACC QS2020-21(6MOS UP)/PF 60 MCG/0.5 ML SYRINGE IM ONE (10:00)
[2020-10-10] MEDS: CYANOCOBALAMIN (VITAMIN B-12) 500 MCG TABLET PO SCH ×2 (11:04→20:47)
[2020-10-10] MEDS: HEPARIN 5,000 UNIT/ML VIAL SQ SCH ×2 (11:05→20:47)
[2020-10-10] MEDS: MELOXICAM 7.5 MG TABLET PO SCH (11:05)
[2020-10-10] MEDS: ATORVASTATIN 10 MG TABLET PO SCH (11:05)
[2020-10-10] MEDS: MIRTAZAPINE 15 MG TABLET PO SCH (11:06)
[2020-10-10] MEDS: THIAMINE 100 MG TABLET PO SCH (11:06)
[2020-10-10] MEDS: FOLIC ACID 1 MG TABLET PO SCH (11:06)
[2020-10-10] MEDS: DOCUSATE SODIUM 100 MG CAPSULE PO SCH ×2 (11:06→20:48)
[2020-10-10] MEDS: MULTIVIT,THER IRON,CA,FA & MIN 1 TABLET PO SCH (11:06)
[2020-10-10] MEDS: cefTRIAXone 2 GM in DEXTROSE 5% IN WATER 50 ML IV SCH (11:36)
--- NOTE | 2020-10-10 12:02 | Internal Med Progress Note ---
SUBJECTIVE Subjective Patient information: Note initiated : 10/10/20 at 12:00 pm Service Date, if different from initiated Date: [] Patient: Larry Barger a 74 y/o M admitted on 10/08/20 for right hip pain. Chief Complaint: [] Interval history: History of present illness: Mr. Barger is a 74 year old M with history of HLD/chronic pain/anxiety who has been experiencing significant right hip along with right knee pain that has gradually limited his activities of daily living. He lives alone and over the past 4-month has not been able to take care of self due to pain related restricting mobility. Over the last 4 days patient has been so weak that he has been laying on the blanket on the floor and has been crawling to get to the bathroom and food. In the last 24 hours he has not eating or drank anything. He was brought into the ER initial work-up was consistent with severe dehydration. White count 15,000 but no clear source of infection identified. Patient was started on antibiotic coverage after cultures were drawn. Patient received crystalloids. Lactic acid 2.1, elevated CK and procalcitonin. UA significant for pyuria. Chest imaging suspicious of interstitial infiltrate. Hospital service was consulted for admission in light of above At the time of my evaluation patient is very anxious and was able to endorse history as above. He mentions about his degenerative knee which he has not been able to see orthopedics. He since has been struggling to get by on a daily basis. He otherwise denies fever, chills, bloody stool, bloody urine, hemoptysis, headache, rash. Denies joint swelling but endorses to bilateral k nee pain and right groin pain. 10/09-patient doing a lot better. Ongoing therapies. Improved leukocytosis at 11.7 on antibiotic coverage. Mentation improved. LFTs downtrending. COVID-19 positive. On contact precautions. 10/10-patient doing well. Tolerating diet. Ongoing physical therapy. We will continue dietary intervention/therapies as tolerated. Case management coordinate SNF transfer due to high risk subsequent injury/self-care deficit and fall risk Constitutional Vitals: Vital Signs Temp Pulse Resp BP Pulse Ox 98.1 F 88 18 135/89 99 10/10/20 03:28 10/10/20 07:01 10/10/20 07:01 10/10/20 07:01 10/10/20 07:01 Period Temp Pulse Resp BP Sys/Hair Pulse Ox Last 24 Hr 97.5 F-98.6 F 80-88 18-24 122-151/80-96 97-99 Intake and Output 10/09/20 10/10/20 10/10/20 21:59 05:59 13:59 Intake Total 1840 1237 Output Total 800 1125 Balance 1040 112 Weight 58.831 kg 58.831 kg Patient Weight 10/11/20 05:59 Weight 58.831 kg Alert oriented, nonlabored breathing Nondistended abdomen No anxiety Resting comfortably Intake & Output: Intake & Output 10/09/20 10/10/20 10/10/20 21:59 05:59 13:59 Intake Total 1840 1237 Output Total 800 1125 Balance 1040 112 Weight 58.831 kg 58.831 kg Intake: IV 1000 962 Sodium Chloride 0.9% 1,000 ml @ 1000 962 100 mls/hr IV .Q10H [facility] Rx#: [id number] Oral 840 275 Output: Urine Catheter Amount 800 1125 Other: Meal Dinner Percent of Meal Consumed 75% Urine Appearance Clear Clear Uretheral (Álvarez) Clear Urine Color Dark Yellow Bright Yellow Uretheral (Álvarez) Dark Yellow Urine Odor Strong OBJ DATA Labs CBC & Chem 7: 10/09/20 05:41 10/09/20 05:41 Labs: Abnormal Lab Results 10/09/20 10/09/20 10/08/20 05:41 05:41 16:15 WBC 11.7 H RBC 3.61 L Hgb 9.2 L Hct 29.7 L MCH 25.5 L RDW 16.0 H Neut % (Auto) 85.3 H Lymph % (Auto) 7.6 L Lymph # (Auto) 0.89 L Reagan # (Auto) Absolute Neutrophils 9.94 H VBG Lactic Acid Glucose Calcium 8.1 L Direct Bilirubin 0.3 H AST Alkaline Phosphatase 568 H Lactate Dehydrogenase 1138 H Total Creatine Kinase C-Reactive Protein Total Protein 5.2 L Albumin 2.5 L Albumin/Globulin Ratio 0.9 L Procalcitonin 0.25 H Urine Protein Urine Ketones Urine Urobilinogen Urine WBC Hyaline Casts Urine Mucus 10/08/20 10/08/20 10/08/20 16:15 15:40 11:46 WBC RBC Hgb Hct MCH RDW Neut % (Auto) Lymph % (Auto) Lymph # (Auto) Reagan # (Auto) Absolute Neutrophils VBG Lactic Acid 2.1 H Glucose Calcium Direct Bilirubin AST Alkaline Phosphatase Lactate Dehydrogenase Total Creatine Kinase C-Reactive Protein 24.30 H Total Protein Albumin Albumin/Globulin Ratio Procalcitonin Urine Protein 30 A Urine Ketones 5 A Urine Urobilinogen 2.0 A Urine WBC 10 H Hyaline Casts 6 H Urine Mucus Many A 10/08/20 10/08/20 10/08/20 11:46 11:46 11:46 WBC 15.0 H RBC 3.99 L Hgb 11.4 L Hct 34.0 L MCH RDW 16.3 H Neut % (Auto) 82.4 H Lymph % (Auto) 8.6 L Lymph # (Auto) 1.29 L Reagan # (Auto) 1.30 H Absolute Neutrophils 12.40 H VBG Lactic Acid Glucose 107 H Calcium Direct Bilirubin AST 48 H Alkaline Phosphatase 728 H Lactate Dehydrogenase Total Creatine Kinase 406 H C-Reactive Protein Total Protein Albumin 3.1 L Albumin/Globulin Ratio Procalcitonin Urine Protein Urine Ketones Urine Urobilinogen Urine WBC Hyaline Casts Urine Mucus Meds: Medications Acetaminophen (Tylenol) 650 mg PO Q4-6HP PRN; Protocol PRN Reason: Per Pain Protocol/Fever > 101 Last Admin: 10/09/20 04:22 Dose: 650 mg Documented by: Hydrocodone Bitart/Acetaminophen ([place] 5/325mg) 1 - 2 tab PO Q4HP PRN; Protocol PRN Reason: Per Pain Protocol Atorvastatin Calcium (Lipitor) 10 mg PO QDAY [facility] Last Admin: 10/10/20 11:05 Dose: 10 mg Documented by: Bisacodyl (Dulcolax) 10 mg [place] Q2-3DAYS PRN PRN Reason: Constipation Cyanocobalamin (Vitamin B-12) 1,000 mcg PO BID [facility] Stop: 10/13/20 09:01 Last Admin: 10/10/20 11:04 Dose: 1,000 mcg Documented by: Docusate Sodium (Colace) 100 mg PO BID [facility] Last Admin: 10/10/20 11:06 Dose: 100 mg Documented by: Folic Acid (Folic Acid) 1 mg PO DAILY [facility] Last Admin: 10/10/20 11:06 Dose: 1 mg Documented by: Heparin Sodium (Porcine) (Heparin) 5,000 unit SQ Q12 [facility] Last Admin: 10/10/20 11:05 Dose: 5,000 unit Documented by: Ceftriaxone Sodium 2 gm/ (Dextrose) 50 mls @ 100 mls/hr IV Q24H [facility]; Protocol Last Admin: 10/10/20 11:36 Dose: 100 mls/hr Documented by: Potassium Chloride 40 meq/ (Dextrose) 520 mls @ 130 mls/hr IV UD PRN PRN Reason: K+ = or < 3.5 Acetaminophen (Ofirmev) 650 mg in 65 mls @ 130 mls/hr IV Q6HP PRN; Protocol PRN Reason: Per Pain Protocol/Fever > 101 Magnesium Sulfate (Magnesium Sulfate) 2 gm in 50 mls @ 50 mls/hr IV UD PRN PRN Reason: MG = or < 1.7 Sodium Chloride (Sodium Chloride 0.9%) 1,000 mls @ 100 mls/hr IV .Q10H [facility] Last Admin: 10/10/20 03:31 Dose: 100 mls/hr Documented by: Iron Carb/Multivit/[employer]/Folic Acid (Multivitamin W/Minerals) 1 tab PO DAILY [facility] Last Admin: 10/10/20 11:06 Dose: 1 tab Documented by: Melatonin (Melatonin 3mg Tablet) 3 mg PO HSP PRN PRN Reason: Insomnia Meloxicam (Mobic) 15 mg PO QDAY [facility] Last Admin: 10/10/20 11:05 Dose: 15 mg Documented by: Mirtazapine (Remeron) 15 mg PO QDAY [facility] Last Admin: 10/10/20 11:06 Dose: 15 mg Documented by: Ondansetron HCl (Zofran Odt) 4 mg SL Q4-6HP PRN; Protocol PRN Reason: Nausea And Vomiting Ondansetron HCl (Zofran) 4 mg IV Q4-6HP PRN; Protocol PRN Reason: Nausea And Vomiting Polyethylene Glycol (Miralax) 17 gm PO DAILYP PRN PRN Reason: Constipation Potassium Chloride (Klor-Con) 40 meq PO DAILYP PRN PRN Reason: K+ < 3.5 Senna/Docusate Sodium (Senna Plus Tablet) 1 tab PO HS [facility] Last Admin: 10/09/20 20:33 Dose: Not Given Documented by: Sodium Chloride (Saline Flush) 10 ml IV Q8 [facility] Last Admin: 10/10/20 04:35 Dose: Not Given Documented by: Thiamine HCl (Vitamin B1) 100 mg PO DAILY [facility] Last Admin: 10/10/20 11:06 Dose: 100 mg Documented by: Tizanidine HCl (Zanaflex) 4 mg PO Q6HP PRN PRN Reason: MUSCLE SPASMS Tramadol HCl (Ultram) 50 mg PO Q4-6HP PRN; Protocol PRN Reason: Per Pain Protocol Trazodone HCl (Desyrel) 50 mg PO HS [facility] Last Admin: 10/09/20 20:34 Dose: 50 mg Documented by: A/P Narrative A/P Narrative: * Acute viral syndrome COVID-19 with weakness fatigue. Continue supportive management, crystalloid/dietary intervention * Complicated UTI-cultures negative so far. * SIRS- with elevated leukocytosis/endorgan dysfunction including elevated LFTs. Clinically resolved * Mild rhabdomyolysis-resolved * Elevated LFTs secondary to acute viral syndrome, resolved * Generalized weakness-/failure to thrive-improving with therapies * DJD continue meloxicam/tramadol/tizanidine * Hyperlipemia continue statin * Prophylaxis heparin Plan * COVID-19 precautions * Antibiotic coverage * Directed therapies/dietary interventions * Pre-existing medical condition management home medications * Discharge planning likely SNF due to profound weakness and inability to take care of self Time Spent With Patient Time: Total time spent is greater than 50% in coordination of care (as documented) at patient's floor/unit and/or counseling patient: QUALITY VTE Deep Vein Thrombosis/Pulmonary Embolism Present on Admission: No
[2020-10-10] MEDS: HYDROcodone/APAP 5/325MG TABLET PO PRN ×3 (13:46→23:30)
[2020-10-10 15:51] LABS: Basophils # (Auto) 0.04 K/mcL (0.00-0.20); Basophils % (Auto) 0.4 % (0.0-2.0); Eosinophils # (Auto) 0.12 K/mcL (0.00-0.70); Eosinophils % (Auto) 1.2 % (0.0-7.0); Hematocrit 31.3 % (41.0-55.0); Hemoglobin 10.4 g/dL (13.5-16.5); Lymphocytes # (Auto) 1.06 K/mcL (1.50-4.80); Lymphocytes % (Auto) 10.7 % (15.0-49.0); Mean Cell Volume 84.6 fL (80.0-100.0); Mean Corpuscular HGB Conc 33.2 g/dL (31.0-36.0); Mean Platelet Volume 10.7 fL (7.4-10.4); Monocytes # (Auto) 0.66 K/mcL (0.10-0.90); Monocytes % (Auto) 6.7 % (1.0-12.0); Platelet Count 355 K/mcL (140-440); Red Cell Distribution Width 16.1 % (11.5-14.5); WBC 9.9 K/mcL (4.5-11.0)
[2020-10-10 16:22] LABS: ALT/SGPT 15 U/L (<40); AST/SGOT 37 U/L (<40); Albumin 2.4 gm/dL (3.2-5.2); Albumin/Globulin Ratio 0.6 (1.0-2.3); Alkaline Phosphatase 481 U/L (39-117); Bilirubin,Direct < 0.2 mg/dL (<0.3); Bilirubin,Total 0.3 mg/dL (0.1-1.0); Blood Urea Nitrogen 11 mg/dL (8-23); Calcium 8.5 mg/dL (8.6-10.4); Carbon Dioxide 22 mmol/L (22-30); Chloride 101 mmol/L (96-108); Globulin 3.8 gm/dL (2.2-3.7); Glomerular Filtration Rate 99; Glucose 73 mg/dL (70-105); Lactate Dehydrogenase 1038 U/L (135-225); Phosphorous 3.2 mg/dL (2.5-4.5); Triglycerides 152 mg/dL (<150); Uric Acid 5.2 mg/dL (2.5-8.0)
[2020-10-10] MEDS: traZODone HCL 50 MG TABLET PO SCH (20:48)
[2020-10-10] MEDS: SENNOSIDES/DOCUSATE SODIUM 1 TAB TABLET PO SCH (20:48)
[2020-10-11] MEDS: 0.9 % SODIUM CHLORIDE 10 ML SYRINGE IV SCH ×3 (06:08→20:32)
[2020-10-11 06:51] LABS: Basophils # (Auto) 0.03 K/mcL (0.00-0.20); Basophils % (Auto) 0.4 % (0.0-2.0); Eosinophils # (Auto) 0.28 K/mcL (0.00-0.70); Eosinophils % (Auto) 3.4 % (0.0-7.0); Hematocrit 28.9 % (41.0-55.0); Hemoglobin 9.1 g/dL (13.5-16.5); Mean Corpuscular HGB Conc 31.5 g/dL (31.0-36.0); Mean Platelet Volume 10.1 fL (7.4-10.4); Monocytes # (Auto) 0.66 K/mcL (0.10-0.90); Monocytes % (Auto) 7.9 % (1.0-12.0); Neutrophils % (Auto) 70.3 % (38.0-78.0); Platelet Count 320 K/mcL (140-440); RBC 3.48 M/mcL (4.50-5.90); Red Cell Distribution Width 15.9 % (11.5-14.5); WBC 8.3 K/mcL (4.5-11.0)
[2020-10-11 07:20] LABS: ALT/SGPT 18 U/L (<40); AST/SGOT 37 U/L (<40); Albumin 2.3 gm/dL (3.2-5.2); Albumin/Globulin Ratio 0.7 (1.0-2.3); Alkaline Phosphatase 382 U/L (39-117); Bilirubin,Direct < 0.2 mg/dL (<0.3); Bilirubin,Total 0.2 mg/dL (0.1-1.0); Blood Urea Nitrogen 14 mg/dL (8-23); Calcium 7.9 mg/dL (8.6-10.4); Carbon Dioxide 25 mmol/L (22-30); Chloride 103 mmol/L (96-108); Globulin 3.1 gm/dL (2.2-3.7); Glomerular Filtration Rate 99; Glucose 84 mg/dL (70-105); Lactate Dehydrogenase 717 U/L (135-225); Phosphorous 3.2 mg/dL (2.5-4.5); Triglycerides 107 mg/dL (<150); Uric Acid 4.8 mg/dL (2.5-8.0)
[2020-10-11] MEDS: 0.9 % SODIUM CHLORIDE 1,000 ML IV SCH (10:28)
--- NOTE | 2020-10-11 11:11 | Internal Med Progress Note ---
SUBJECTIVE Subjective Patient information: Note initiated : 10/11/20 at 11:11 am Service Date, if different from initiated Date: [] Patient: Larry Barger a 74 y/o M admitted on 10/08/20 for right hip pain. Chief Complaint: [] Interval history: History of present illness: Mr. Barger is a 74 year old M with history of HLD/chronic pain/anxiety who has been experiencing significant right hip along with right knee pain that has gradually limited his activities of daily living. He lives alone and over the past 4-month has not been able to take care of self due to pain related restricting mobility. Over the last 4 days patient has been so weak that he has been laying on the blanket on the floor and has been crawling to get to the bathroom and food. In the last 24 hours he has not eating or drank anything. He was brought into the ER initial work-up was consistent with severe dehydration. White count 15,000 but no clear source of infection identified. Patient was started on antibiotic coverage after cultures were drawn. Patient received crystalloids. Lactic acid 2.1, elevated CK and procalcitonin. UA significant for pyuria. Chest imaging suspicious of interstitial infiltrate. Hospital service was consulted for admission in light of above At the time of my evaluation patient is very anxious and was able to endorse history as above. He mentions about his degenerative knee which he has not been able to see orthopedics. He since has been struggling to get by on a daily basis. He otherwise denies fever, chills, bloody stool, bloody urine, hemoptysis, headache, rash. Denies joint swelling but endorses to bilateral k nee pain and right groin pain. 10/09-patient doing a lot better. Ongoing therapies. Improved leukocytosis at 11.7 on antibiotic coverage. Mentation improved. LFTs downtrending. COVID-19 positive. On contact precautions. 10/10-patient doing well. Tolerating diet. Ongoing physical therapy. We will continue dietary intervention/therapies as tolerated. Case management coordinate SNF transfer due to high risk subsequent injury/self-care deficit and fall risk 10/11-patient clinically improving. Tolerating diet and ongoing physical therapy. Improved weakness. Stable hemodynamics and labs. Interval chest imaging unremarkable. No fever chills or concerns per staff. Constitutional Vitals: Vital Signs Temp Pulse Resp BP Pulse Ox 98.7 F 87 16 139/101 97 10/11/20 07:29 10/11/20 08:00 10/11/20 08:00 10/11/20 07:29 10/11/20 08:00 Period Temp Pulse Resp BP Sys/Hair Pulse Ox Last 24 Hr 97.6 F-98.7 F 69-87 14-22 122-166/73-101 95-99 Intake and Output 10/10/20 10/11/20 10/11/20 21:59 05:59 13:59 Intake Total 880 1182 1000 Output Total 325 350 Balance 177 983 9881 Weight 58.649 kg Alert oriented Nonlabored breathing Nondistended abdomen No anxiety Intake & Output: Intake & Output 10/10/20 10/11/20 10/11/20 21:59 05:59 13:59 Intake Total 880 1182 1000 Output Total 325 350 Balance 590 321 3005 Weight 58.649 kg Intake: IV 982 1000 Sodium Chloride 0.9% 1,000 ml @ 982 1000 100 mls/hr IV .Q10H REPLACED BY [facility] Rx#: [id number] Oral 880 200 Output: Urine Catheter Amount 325 350 Other: Meal Dinner Percent of Meal Consumed 25% Feeding Ability Independent Urine Appearance Clear Clear Clear Uretheral (Álvarez) Cloudy Cloudy Sediment Sediment Urine Color Bright Yellow Bright Yellow Bright Yellow Uretheral (Álvarez) Bright Yellow Bright Yellow Urine Odor Foul Foul Uretheral (Álvarez) Foul Foul Stool Size Small Small Stool Color Brown Brown Stool Consistency Formed Formed # Bowel Movements 1 OBJ DATA Labs CBC & Chem 7: 10/12/20 05:19 10/12/20 05:19 Labs: Abnormal Lab Results 10/11/20 10/11/20 10/10/20 05:43 05:43 05:34 WBC RBC 3.48 L Hgb 9.1 L Hct 28.9 L MCH RDW 15.9 H MPV Neut % (Auto) Lymph % (Auto) Lymph # (Auto) [place] # (Auto) Absolute Neutrophils VBG Lactic Acid Creatinine 0.6 L 0.6 L Glucose Calcium 7.9 L 8.5 L Direct Bilirubin AST Alkaline Phosphatase 382 H 481 H Lactate Dehydrogenase 717 H 1038 H Total Creatine Kinase C-Reactive Protein Total Protein 5.4 L Albumin 2.3 L 2.4 L Globulin 3.8 H Albumin/Globulin Ratio 0.7 L 0.6 L Triglycerides 152 H Procalcitonin Urine Protein Urine Ketones Urine Urobilinogen Urine WBC Hyaline Casts Urine Mucus 10/10/20 10/09/20 10/09/20 05:34 05:41 05:41 WBC 11.7 H RBC 3.70 L 3.61 L Hgb 10.4 L 9.2 L Hct 31.3 L 29.7 L MCH 25.5 L RDW 16.1 H 16.0 H MPV 10.7 H Neut % (Auto) 81.0 H 85.3 H Lymph % (Auto) 10.7 L 7.6 L Lymph # (Auto) 1.06 L 0.89 L [place] # (Auto) Absolute Neutrophils 8.01 H 9.94 H VBG Lactic Acid Creatinine Glucose Calcium 8.1 L Direct Bilirubin 0.3 H AST Alkaline Phosphatase 568 H Lactate Dehydrogenase 1138 H Total Creatine Kinase C-Reactive Protein Total Protein 5.2 L Albumin 2.5 L Globulin Albumin/Globulin Ratio 0.9 L Triglycerides Procalcitonin Urine Protein Urine Ketones Urine Urobilinogen Urine WBC Hyaline Casts Urine Mucus 10/08/20 10/08/20 10/08/20 16:15 16:15 15:40 WBC RBC Hgb Hct MCH RDW MPV Neut % (Auto) Lymph % (Auto) Lymph # (Auto) [place] # (Auto) Absolute Neutrophils VBG Lactic Acid 2.1 H Creatinine Glucose Calcium Direct Bilirubin AST Alkaline Phosphatase Lactate Dehydrogenase Total Creatine Kinase C-Reactive Protein Total Protein Albumin Globulin Albumin/Globulin Ratio Triglycerides Procalcitonin 0.25 H Urine Protein 30 A Urine Ketones 5 A Urine Urobilinogen 2.0 A Urine WBC 10 H Hyaline Casts 6 H Urine Mucus Many A 10/08/20 10/08/20 10/08/20 11:46 11:46 11:46 WBC RBC Hgb Hct MCH RDW MPV Neut % (Auto) Lymph % (Auto) Lymph # (Auto) [place] # (Auto) Absolute Neutrophils VBG Lactic Acid Creatinine Glucose 107 H Calcium Direct Bilirubin AST 48 H Alkaline Phosphatase 728 H Lactate Dehydrogenase Total Creatine Kinase 406 H C-Reactive Protein 24.30 H Total Protein Albumin 3.1 L Globulin Albumin/Globulin Ratio Triglycerides Procalcitonin Urine Protein Urine Ketones Urine Urobilinogen Urine WBC Hyaline Casts Urine Mucus 10/08/20 11:46 WBC 15.0 H RBC 3.99 L Hgb 11.4 L Hct 34.0 L MCH RDW 16.3 H MPV Neut % (Auto) 82.4 H Lymph % (Auto) 8.6 L Lymph # (Auto) 1.29 L [place] # (Auto) 1.30 H Absolute Neutrophils 12.40 H VBG Lactic Acid Creatinine Glucose Calcium Direct Bilirubin AST Alkaline Phosphatase Lactate Dehydrogenase Total Creatine Kinase C-Reactive Protein Total Protein Albumin Globulin Albumin/Globulin Ratio Triglycerides Procalcitonin Urine Protein Urine Ketones Urine Urobilinogen Urine WBC Hyaline Casts Urine Mucus Meds: Medications Acetaminophen (Tylenol) 650 mg PO Q4-6HP PRN; Protocol PRN Reason: Per Pain Protocol/Fever > 101 Last Admin: 10/09/20 04:22 Dose: 650 mg Documented by: Hydrocodone Bitart/Acetaminophen ([place] 5/325mg) 1 - 2 tab PO Q4HP PRN; Protoco l PRN Reason: Per Pain Protocol Last Admin: 10/10/20 23:30 Dose: 2 tab Documented by: Atorvastatin Calcium (Lipitor) 10 mg PO QDAY REPLACED BY [facility] Last Admin: 10/10/20 11:05 Dose: 10 mg Documented by: Bisacodyl (Dulcolax) 10 mg VA Q2-3DAYS PRN PRN Reason: Constipation Cyanocobalamin (Vitamin B-12) 1,000 mcg PO BID REPLACED BY [facility] Stop: 10/13/20 09:01 Last Admin: 10/10/20 20:47 Dose: 1,000 mcg Documented by: Docusate Sodium (Colace) 100 mg PO BID REPLACED BY [facility] Last Admin: 10/10/20 20:48 Dose: 100 mg Documented by: Folic Acid (Folic Acid) 1 mg PO DAILY REPLACED BY [facility] Last Admin: 10/10/20 11:06 Dose: 1 mg Documented by: Heparin Sodium (Porcine) (Heparin) 5,000 unit SQ Q12 REPLACED BY [facility] Last Admin: 10/10/20 20:47 Dose: 5,000 unit Documented by: Ceftriaxone Sodium 2 gm/ (Dextrose) 50 mls @ 100 mls/hr IV Q24H REPLACED BY [facility]; Protocol Last Infusion: 10/10/20 12:08 Dose: Infused Documented by: Potassium Chloride 40 meq/ (Dextrose) 520 mls @ 130 mls/hr IV UD PRN PRN Reason: K+ = or < 3.5 Acetaminophen (Ofirmev) 650 mg in 65 mls @ 130 mls/hr IV Q6HP PRN; Protocol PRN Reason: Per Pain Protocol/Fever > 101 Magnesium Sulfate (Magnesium Sulfate) 2 gm in 50 mls @ 50 mls/hr IV UD PRN PRN Reason: MG = or < 1.7 Sodium Chloride (Sodium Chloride 0.9%) 1,000 mls @ 100 mls/hr IV .Q10H REPLACED BY [facility] Last Admin: 10/11/20 10:28 Dose: Not Given Documented by: Iron Carb/Multivit/[place]/Folic Acid (Multivitamin W/Minerals) 1 tab PO DAILY REPLACED BY [facility] Last Admin: 10/10/20 11:06 Dose: 1 tab Documented by: Melatonin (Melatonin 3mg Tablet) 3 mg PO HSP PRN PRN Reason: Insomnia Meloxicam (Mobic) 15 mg PO QDAY REPLACED BY [facility] Last Admin: 10/10/20 11:05 Dose: 15 mg Documented by: Mirtazapine (Remeron) 15 mg PO QDAY REPLACED BY [facility] Last Admin: 10/10/20 11:06 Dose: 15 mg Documented by: Ondansetron HCl (Zofran Odt) 4 mg SL Q4-6HP PRN; Protocol PRN Reason: Nausea And Vomiting Ondansetron HCl (Zofran) 4 mg IV Q4-6HP PRN; Protocol PRN Reason: Nausea And Vomiting Polyethylene Glycol (Miralax) 17 gm PO DAILYP PRN PRN Reason: Constipation Potassium Chloride (Klor-Con) 40 meq PO DAILYP PRN PRN Reason: K+ < 3.5 Senna/Docusate Sodium (Senna Plus Tablet) 1 tab PO HS REPLACED BY [facility] Last Admin: 10/10/20 20:48 Dose: 1 tab Documented by: Sodium Chloride (Saline Flush) 10 ml IV Q8 REPLACED BY [facility] Last Admin: 10/11/20 06:08 Dose: Not Given Documented by: Thiamine HCl (Vitamin B1) 100 mg PO DAILY REPLACED BY [facility] Last Admin: 10/10/20 11:06 Dose: 100 mg Documented by: Tizanidine HCl (Zanaflex) 4 mg PO Q6HP PRN PRN Reason: MUSCLE SPASMS Last Admin: 10/10/20 20:48 Dose: 4 mg Documented by: Tramadol HCl (Ultram) 50 mg PO Q4-6HP PRN; Protocol PRN Reason: Per Pain Protocol Trazodone HCl (Desyrel) 50 mg PO HS DEBI Last Admin: 10/10/20 20:48 Dose: 50 mg Documented by: A/P Narrative A/P Narrative: * Acute viral syndrome COVID-19 with weakness fatigue. Clinical improvement noted. Continue supportive management. dietary intervention * Complicated UTI-cultures negative so far. Plan to discontinue antibiotics in 48 hours * SIRS- with elevated leukocytosis/endorgan dysfunction including elevated LFTs. Clinically resolved * Mild rhabdomyolysis-resolved * Elevated LFTs secondary to acute viral syndrome, resolved * Generalized weakness-/failure to thrive-improving with therapies * DJD continue meloxicam/tramadol/tizanidine * Hyperlipemia continue statin * Prophylaxis heparin Plan * COVID-19 precautions * DC antibiotics in 48 hours * Directed therapies/dietary interventions * Pre-existing medical condition management home medications * Discharge planning likely SNF due to profound weakness and inability to take care of self Time Spent With Patient Time: Total time spent is greater than 50% in coordination of care (as documented) at patient's floor/unit and/or counseling patient: QUALITY VTE Deep Vein Thrombosis/Pulmonary Embolism Present on Admission: No
[2020-10-11] MEDS: ATORVASTATIN 10 MG TABLET PO SCH (11:40)
[2020-10-11] MEDS: HEPARIN 5,000 UNIT/ML VIAL SQ SCH ×2 (11:40→20:32)
[2020-10-11] MEDS: THIAMINE 100 MG TABLET PO SCH (11:41)
[2020-10-11] MEDS: MIRTAZAPINE 15 MG TABLET PO SCH (11:41)
[2020-10-11] MEDS: DOCUSATE SODIUM 100 MG CAPSULE PO SCH ×2 (11:41→20:32)
[2020-10-11] MEDS: MULTIVIT,THER IRON,CA,FA & MIN 1 TABLET PO SCH (11:41)
[2020-10-11] MEDS: CYANOCOBALAMIN (VITAMIN B-12) 500 MCG TABLET PO SCH ×2 (11:41→20:32)
[2020-10-11] MEDS: FOLIC ACID 1 MG TABLET PO SCH (11:42)
[2020-10-11] MEDS: MELOXICAM 7.5 MG TABLET PO SCH (11:42)
[2020-10-11] MEDS: HYDROcodone/APAP 5/325MG TABLET PO PRN ×2 (11:43→20:45)
[2020-10-11] MEDS ORDERED: cefTRIAXone 2 GM VIAL ONE (12:01)
[2020-10-11] MEDS: cefTRIAXone 2 GM in DEXTROSE 5% IN WATER 50 ML IV SCH (12:02)
[2020-10-11] MEDS: SENNOSIDES/DOCUSATE SODIUM 1 TAB TABLET PO SCH (20:32)
[2020-10-11] MEDS: traZODone HCL 50 MG TABLET PO SCH (20:32)
[2020-10-12] MEDS: 0.9 % SODIUM CHLORIDE 10 ML SYRINGE IV SCH ×3 (05:16→21:35)
[2020-10-12 06:32] LABS: Basophils # (Auto) 0.06 K/mcL (0.00-0.20); Basophils % (Auto) 0.6 % (0.0-2.0); Eosinophils # (Auto) 0.14 K/mcL (0.00-0.70); Eosinophils % (Auto) 1.3 % (0.0-7.0); Hematocrit 30.2 % (41.0-55.0); Hemoglobin 9.8 g/dL (13.5-16.5); Lymphocytes # (Auto) 1.32 K/mcL (1.50-4.80); Lymphocytes % (Auto) 12.3 % (15.0-49.0); Mean Cell Volume 86.3 fL (80.0-100.0); Mean Corpuscular HGB Conc 32.5 g/dL (31.0-36.0); Mean Platelet Volume 9.9 fL (7.4-10.4); Monocytes # (Auto) 0.83 K/mcL (0.10-0.90); Monocytes % (Auto) 7.7 % (1.0-12.0); Neutrophils % (Auto) 78.1 % (38.0-78.0); Platelet Count 335 K/mcL (140-440); Red Cell Distribution Width 15.9 % (11.5-14.5); WBC 10.7 K/mcL (4.5-11.0)
[2020-10-12 07:27] LABS: ALT/SGPT 17 U/L (<40); AST/SGOT 51 U/L (<40); Albumin 2.6 gm/dL (3.2-5.2); Albumin/Globulin Ratio 0.8 (1.0-2.3); Alkaline Phosphatase 493 U/L (39-117); Bilirubin,Direct < 0.2 mg/dL (<0.3); Bilirubin,Total 0.2 mg/dL (0.1-1.0); Blood Urea Nitrogen 12 mg/dL (8-23); Calcium 8.3 mg/dL (8.6-10.4); Carbon Dioxide 26 mmol/L (22-30); Chloride 102 mmol/L (96-108); Globulin 3.2 gm/dL (2.2-3.7); Glomerular Filtration Rate 93; Glucose 86 mg/dL (70-105); Lactate Dehydrogenase 1106 U/L (135-225); Phosphorous 3.2 mg/dL (2.5-4.5); Triglycerides 169 mg/dL (<150); Uric Acid 4.4 mg/dL (2.5-8.0)
[2020-10-12] MEDS: THIAMINE 100 MG TABLET PO SCH (09:20)
[2020-10-12] MEDS: DOCUSATE SODIUM 100 MG CAPSULE PO SCH ×2 (09:20→21:34)
[2020-10-12] MEDS: MIRTAZAPINE 15 MG TABLET PO SCH (09:20)
[2020-10-12] MEDS: MULTIVIT,THER IRON,CA,FA & MIN 1 TABLET PO SCH (09:20)
[2020-10-12] MEDS: CYANOCOBALAMIN (VITAMIN B-12) 500 MCG TABLET PO SCH ×2 (09:21→21:33)
[2020-10-12] MEDS: ATORVASTATIN 10 MG TABLET PO SCH (09:21)
[2020-10-12] MEDS: MELOXICAM 7.5 MG TABLET PO SCH (09:22)
[2020-10-12] MEDS: cefTRIAXone 2 GM in DEXTROSE 5% IN WATER 50 ML IV SCH (09:22)
[2020-10-12] MEDS: HEPARIN 5,000 UNIT/ML VIAL SQ SCH ×2 (09:22→21:33)
[2020-10-12] MEDS: FOLIC ACID 1 MG TABLET PO SCH (09:22)
--- NOTE | 2020-10-12 10:46 | Internal Med Progress Note ---
SUBJECTIVE Subjective Patient information: Note initiated : 10/12/20 at 10:44 am Service Date, if different from initiated Date: [] Patient: Larry Barger a 74 y/o M admitted on 10/08/20 for right hip pain. Chief Complaint: [] Interval history: History of present illness: Mr. Barger is a 74 year old M with history of HLD/chronic pain/anxiety who has been experiencing significant right hip along with right knee pain that has gradually limited his activities of daily living. He lives alone and over the past 4-month has not been able to take care of self due to pain related restricting mobility. Over the last 4 days patient has been so weak that he has been laying on the blanket on the floor and has been crawling to get to the bathroom and food. In the last 24 hours he has not eating or drank anything. He was brought into the ER initial work-up was consistent with severe dehydration. White count 15,000 but no clear source of infection identified. Patient was started on antibiotic coverage after cultures were drawn. Patient received crystalloids. Lactic acid 2.1, elevated CK and procalcitonin. UA significant for pyuria. Chest imaging suspicious of interstitial infiltrate. Hospital service was consulted for admission in light of above At the time of my evaluation patient is very anxious and was able to endorse history as above. He mentions about his degenerative knee which he has not been able to see orthopedics. He since has been struggling to get by on a daily basis. He otherwise denies fever, chills, bloody stool, bloody urine, hemoptysis, headache, rash. Denies joint swelling but endorses to bilateral k nee pain and right groin pain. 10/09-patient doing a lot better. Ongoing therapies. Improved leukocytosis at 11.7 on antibiotic coverage. Mentation improved. LFTs downtrending. COVID-19 positive. On contact precautions. 10/10-patient doing well. Tolerating diet. Ongoing physical therapy. We will continue dietary intervention/therapies as tolerated. Case management coordinate SNF transfer due to high risk subsequent injury/self-care deficit and fall risk 10/11-patient clinically improving. Tolerating diet and ongoing physical therapy. Improved weakness. Stable hemodynamics and labs. Interval chest imaging unremarkable. No fever chills or concerns per staff. 2/12-patient doing well. No overnight events. No concerns per staff. No fever chills nausea vomiting. Ongoing therapies. Tolerating diet. Case management coordinating transfer to [facility]. Constitutional Vitals: Vital Signs Temp Pulse Resp BP Pulse Ox 98.9 F 86 18 128/85 96 10/12/20 06:39 10/12/20 08:00 10/12/20 06:39 10/12/20 06:39 10/12/20 06:39 Period Temp Pulse Resp BP Sys/Hair Pulse Ox Last 24 Hr 97.6 F-99.7 F 71-87 14-18 128-150/80-89 95-99 Intake and Output 10/11/20 10/12/20 10/12/20 21:59 05:59 13:59 Intake Total 120 200 290 Output Total 1000 1000 Balance -880 -800 290 Weight 58.649 kg Alert oriented, no anxiety Nonlabored breathing On room air Intake & Output: Intake & Output 10/11/20 10/12/20 10/12/20 21:59 05:59 13:59 Intake Total 120 200 290 Output Total 1000 1000 Balance -880 -800 290 Weight 58.649 kg Intake: IV 50 Rocephin 2 gm In Dextrose 5% in 50 Water 50 ml @ 100 mls/hr IV Q24H [facility] Rx#:[id number] Oral 120 200 240 Output: Urine Catheter Amount 1000 1000 Other: Meal Dinner Breakfast Percent of Meal Consumed 25% 50% Feeding Ability Independent Independent Urine Appearance Clear Clear Uretheral (Álvarez) Cloudy Cloudy Sediment Sediment Urine Color Bright Yellow Dark Yellow Uretheral (Álvarez) Bright Yellow Bright Yellow Urine Odor Foul Strong Uretheral (Álvarez) Foul Foul Stool Size Small Stool Color Brown Stool Consistency Formed OBJ DATA Labs CBC & Chem 7: 10/12/20 05:19 10/12/20 05:19 Labs: Abnormal Lab Results 10/12/20 10/12/20 10/11/20 05:19 05:19 05:43 RBC 3.50 L Hgb 9.8 L Hct 30.2 L RDW 15.9 H MPV Neut % (Auto) 78.1 H Lymph % (Auto) 12.3 L Lymph # (Auto) 1.32 L Absolute Neutrophils 8.38 H Creatinine 0.6 L Calcium 8.3 L 7.9 L AST 51 H Alkaline Phosphatase 493 H 382 H Lactate Dehydrogenase 1106 H 717 H Total Protein 5.8 L 5.4 L Albumin 2.6 L 2.3 L Globulin Albumin/Globulin Ratio 0.8 L 0.7 L Triglycerides 169 H 10/11/20 10/10/20 10/10/20 05:43 05:34 05:34 RBC 3.48 L 3.70 L Hgb 9.1 L 10.4 L Hct 28.9 L 31.3 L RDW 15.9 H 16.1 H MPV 10.7 H Neut % (Auto) 81.0 H Lymph % (Auto) 10.7 L Lymph # (Auto) 1.06 L Absolute Neutrophils 8.01 H Creatinine 0.6 L Calcium 8.5 L AST Alkaline Phosphatase 481 H Lactate Dehydrogenase 1038 H Total Protein Albumin 2.4 L Globulin 3.8 H Albumin/Globulin Ratio 0.6 L Triglycerides 152 H Meds: Medications Acetaminophen (Tylenol) 650 mg PO Q4-6HP PRN; Protocol PRN Reason: Per Pain Protocol/Fever > 101 Last Admin: 10/09/20 04:22 Dose: 650 mg Documented by: Hydrocodone Bitart/Acetaminophen ([place] 5/325mg) 1 - 2 tab PO Q4HP PRN; Protocol PRN Reason: Per Pain Protocol Last Admin: 10/11/20 20:45 Dose: 1 tab Documented by: Atorvastatin Calcium (Lipitor) 10 mg PO QDAY [facility] Last Admin: 10/12/20 09:21 Dose: 10 mg Documented by: Bisacodyl (Dulcolax) 10 mg ID Q2-3DAYS PRN PRN Reason: Constipation Cyanocobalamin (Vitamin B-12) 1,000 mcg PO BID [facility] Stop: 10/13/20 09:01 Last Admin: 10/12/20 09:21 Dose: 1,000 mcg Documented by: Docusate Sodium (Colace) 100 mg PO BID [facility] Last Admin: 10/12/20 09:20 Dose: 100 mg Documented by: Folic Acid (Folic Acid) 1 mg PO DAILY [facility] Last Admin: 10/12/20 09:22 Dose: 1 mg Documented by: Heparin Sodium (Porcine) (Heparin) 5,000 unit SQ Q12 [facility] Last Admin: 10/12/20 09:22 Dose: 5,000 unit Documented by: Ceftriaxone Sodium 2 gm/ (Dextrose) 50 mls @ 100 mls/hr IV Q24H [facility]; Protocol Last Infusion: 10/12/20 10:06 Dose: Infused Documented by: Potassium Chloride 40 meq/ (Dextrose) 520 mls @ 130 mls/hr IV UD PRN PRN Reason: K+ = or < 3.5 Acetaminophen (Ofirmev) 650 mg in 65 mls @ 130 mls/hr IV Q6HP PRN; Protocol PRN Reason: Per Pain Protocol/Fever > 101 Magnesium Sulfate (Magnesium Sulfate) 2 gm in 50 mls @ 50 mls/hr IV UD PRN PRN Reason: MG = or < 1.7 Iron Carb/Multivit/[place]/Folic Acid (Multivitamin W/Minerals) 1 tab PO DAILY [facility] Last Admin: 10/12/20 09:20 Dose: 1 tab Documented by: Melatonin (Melatonin 3mg Tablet) 3 mg PO HSP PRN PRN Reason: Insomnia Meloxicam (Mobic) 15 mg PO QDAY [facility] Last Admin: 10/12/20 09:22 Dose: 15 mg Documented by: Mirtazapine (Remeron) 15 mg PO QDAY [facility] Last Admin: 10/12/20 09:20 Dose: 15 mg Documented by: Ondansetron HCl (Zofran Odt) 4 mg SL Q4-6HP PRN; Protocol PRN Reason: Nausea And Vomiting Ondansetron HCl (Zofran) 4 mg IV Q4-6HP PRN; Protocol PRN Reason: Nausea And Vomiting Polyethylene Glycol (Miralax) 17 gm PO DAILYP PRN PRN Reason: Constipation Potassium Chloride (Klor-Con) 40 meq PO DAILYP PRN PRN Reason: K+ < 3.5 Senna/Docusate Sodium (Senna Plus Tablet) 1 tab PO HS [facility] Last Admin: 10/11/20 20:32 Dose: 1 tab Documented by: Sodium Chloride (Saline Flush) 10 ml IV Q8 [facility] Last Admin: 10/12/20 05:16 Dose: 10 ml Documented by: Thiamine HCl (Vitamin B1) 100 mg PO DAILY [facility] Last Admin: 10/12/20 09:20 Dose: 100 mg Documented by: Tizanidine HCl (Zanaflex) 4 mg PO Q6HP PRN PRN Reason: MUSCLE SPASMS Last Admin: 10/10/20 20:48 Dose: 4 mg Documented by: Tramadol HCl (Ultram) 50 mg PO Q4-6HP PRN; Protocol PRN Reason: Per Pain Protocol Trazodone HCl (Desyrel) 50 mg PO HS [facility] Last Admin: 10/11/20 20:32 Dose: 50 mg Documented by: A/P Narrative A/P Narrative: * Acute viral syndrome COVID-19 with weakness fatigue. Continued improvement noted with diet intervention/therapies/supportive management * Complicated UTI-clinically resolved. DC antibiotics in 24 hours * SIRS- with elevated leukocytosis/endorgan dysfunction including elevated LFTs. Clinically resolved * Mild rhabdomyolysis-resolved * Elevated LFTs secondary to acute viral syndrome, resolved * Generalized weakness-/failure to thrive-improving with therapies * DJD continue meloxicam/tramadol/tizanidine * Hyperlipemia continue statin * Prophylaxis heparin Plan * Continue supportive management * DC antibiotics in 24 hours * Continue directed therapies/dietary interventions * Pre-existing medical condition management home medications * Discharge planning likely SNF on Thursday Time Spent With Patient Time: Total time spent is greater than 50% in coordination of care (as documented) at patient's floor/unit and/or counseling patient: QUALITY VTE Deep Vein Thrombosis/Pulmonary Embolism Present on Admission: No
[2020-10-12] MEDS: HYDROcodone/APAP 5/325MG TABLET PO PRN (21:34)
[2020-10-12] MEDS: traZODone HCL 50 MG TABLET PO SCH (21:34)
[2020-10-12] MEDS: SENNOSIDES/DOCUSATE SODIUM 1 TAB TABLET PO SCH (21:35)
[2020-10-13] MEDS: 0.9 % SODIUM CHLORIDE 10 ML SYRINGE IV SCH ×3 (05:28→21:26)
[2020-10-13 06:50] LABS: Basophils # (Auto) 0.06 K/mcL (0.00-0.20); Basophils % (Auto) 0.5 % (0.0-2.0); Eosinophils # (Auto) 0.24 K/mcL (0.00-0.70); Hematocrit 29.4 % (41.0-55.0); Hemoglobin 9.6 g/dL (13.5-16.5); Lymphocytes # (Auto) 1.78 K/mcL (1.50-4.80); Lymphocytes % (Auto) 14.8 % (15.0-49.0); Mean Cell Volume 82.1 fL (80.0-100.0); Mean Corpuscular HGB Conc 32.7 g/dL (31.0-36.0); Monocytes # (Auto) 0.97 K/mcL (0.10-0.90); Monocytes % (Auto) 8.1 % (1.0-12.0); Neutrophils % (Auto) 74.6 % (38.0-78.0); Platelet Count 345 K/mcL (140-440); RBC 3.58 M/mcL (4.50-5.90)
[2020-10-13 07:17] LABS: ALT/SGPT 15 U/L (<40); AST/SGOT 42 U/L (<40); Albumin 2.6 gm/dL (3.2-5.2); Albumin/Globulin Ratio 0.8 (1.0-2.3); Alkaline Phosphatase 461 U/L (39-117); Bilirubin,Direct < 0.2 mg/dL (<0.3); Bilirubin,Total 0.2 mg/dL (0.1-1.0); Blood Urea Nitrogen 15 mg/dL (8-23); Calcium 8.3 mg/dL (8.6-10.4); Carbon Dioxide 26 mmol/L (22-30); Chloride 100 mmol/L (96-108); Globulin 3.2 gm/dL (2.2-3.7); Glomerular Filtration Rate 99; Glucose 90 mg/dL (70-105); Lactate Dehydrogenase 982 U/L (135-225); Phosphorous 3.1 mg/dL (2.5-4.5); Triglycerides 125 mg/dL (<150); Uric Acid 4.1 mg/dL (2.5-8.0)
[2020-10-13] MEDS: DOCUSATE SODIUM 100 MG CAPSULE PO SCH ×2 (07:20→20:45)
[2020-10-13] MEDS: cefTRIAXone 2 GM in DEXTROSE 5% IN WATER 50 ML IV SCH (08:50)
[2020-10-13] MEDS: ATORVASTATIN 10 MG TABLET PO SCH (08:53)
[2020-10-13] MEDS: MELOXICAM 7.5 MG TABLET PO SCH (08:53)
[2020-10-13] MEDS: FOLIC ACID 1 MG TABLET PO SCH (08:53)
[2020-10-13] MEDS: MULTIVIT,THER IRON,CA,FA & MIN 1 TABLET PO SCH (08:54)
[2020-10-13] MEDS: HEPARIN 5,000 UNIT/ML VIAL SQ SCH ×2 (08:54→21:26)
[2020-10-13] MEDS: CYANOCOBALAMIN (VITAMIN B-12) 500 MCG TABLET PO SCH (08:54)
[2020-10-13] MEDS: MIRTAZAPINE 15 MG TABLET PO SCH (08:54)
[2020-10-13] MEDS: THIAMINE 100 MG TABLET PO SCH (08:54)
--- NOTE | 2020-10-13 11:16 | Internal Med Progress Note ---
SUBJECTIVE Subjective Patient information: Note initiated : 10/13/20 at 11:13 am Service Date, if different from initiated Date: [] Patient: Larry Barger a 74 y/o M admitted on 10/08/20 for right hip pain. Chief Complaint: [] Interval history: History of present illness: Mr. Barger is a 74 year old M with history of HLD/chronic pain/anxiety who has been experiencing significant right hip along with right knee pain that has gradually limited his activities of daily living. He lives alone and over the past 4-month has not been able to take care of self due to pain related restricting mobility. Over the last 4 days patient has been so weak that he has been laying on the blanket on the floor and has been crawling to get to the bathroom and food. In the last 24 hours he has not eating or drank anything. He was brought into the ER initial work-up was consistent with severe dehydration. White count 15,000 but no clear source of infection identified. Patient was started on antibiotic coverage after cultures were drawn. Patient received crystalloids. Lactic acid 2.1, elevated CK and procalcitonin. UA significant for pyuria. Chest imaging suspicious of interstitial infiltrate. Hospital service was consulted for admission in light of above At the time of my evaluation patient is very anxious and was able to endorse history as above. He mentions about his degenerative knee which he has not been able to see orthopedics. He since has been struggling to get by on a daily basis. He otherwise denies fever, chills, bloody stool, bloody urine, hemoptysis, headache, rash. Denies joint swelling but endorses to bilateral k nee pain and right groin pain. 10/09-patient doing a lot better. Ongoing therapies. Improved leukocytosis at 11.7 on antibiotic coverage. Mentation improved. LFTs downtrending. COVID-19 positive. On contact precautions. 10/10-patient doing well. Tolerating diet. Ongoing physical therapy. We will continue dietary intervention/therapies as tolerated. Case management coordinate SNF transfer due to high risk subsequent injury/self-care deficit and fall risk 10/11-patient clinically improving. Tolerating diet and ongoing physical therapy. Improved weakness. Stable hemodynamics and labs. Interval chest imaging unremarkable. No fever chills or concerns per staff. 2/12-patient doing well. No overnight events. No concerns per staff. No fever chills nausea vomiting. Ongoing therapies. Tolerating diet. Case management coordinating transfer to . 10/13 white count elevated at 12. However on room air. LFTs downtrending however LDH remains persistently elevated. Check WSR/CK. Possibly viral mediated elevation. Álvarez's catheter discontinued. Self voiding. Tolerating d iet and ongoing physical therapy. T-max 100.8. Currently on room air. Stable hemodynamics. Constitutional Vitals: Vital Signs Temp Pulse Resp BP Pulse Ox 97.9 F 89 18 133/92 99 10/13/20 06:48 10/13/20 06:48 10/13/20 06:48 10/13/20 06:48 10/13/20 06:48 Period Temp Pulse Resp BP Sys/Hair Pulse Ox Last 24 Hr 97.9 F-100.8 F 84-94 18-20 113-152/76-95 96-99 Intake and Output 10/12/20 10/13/20 10/13/20 21:59 05:59 13:59 Intake Total 240 150 Output Total 1350 1 Balance 240 -1200 -1 Weight 58.604 kg 58.604 kg Patient Weight 10/14/20 05:59 Weight 58.604 kg Alert oriented Nonlabored breathing No anxiety Nontender abdomen Intake & Output: Intake & Output 10/12/20 10/13/20 10/13/20 21:59 05:59 13:59 Intake Total 240 150 Output Total 1350 1 Balance 240 -1200 -1 Weight 58.604 kg 58.604 kg Intake: Oral 240 150 Output: Urine Catheter Amount 1350 # of times incontinent of urine 1 Other: Meal Lunch Breakfast Percent of Meal Consumed 25% 10 Feeding Ability Independent Assist with Tray Set Up Urine Appearance Clear Clear Uretheral (Álvarez) Cloudy Sediment Urine Color Bright Yellow Dark Yellow Uretheral (Álvarez) Bright Yellow Urine Odor Strong Strong Uretheral (Álvarez) Foul Stool Size Moderate Stool Color Brown Stool Consistency Liquid # Voids 1 # of times incontinent of 2 Bowels OBJ DATA Labs CBC & Chem 7: 10/13/20 05:55 10/13/20 05:54 Labs: Abnormal Lab Results 10/13/20 10/13/20 10/12/20 05:55 05:54 05:19 WBC 12.0 H RBC 3.58 L Hgb 9.6 L Hct 29.4 L RDW 16.0 H MPV Neut % (Auto) Lymph % (Auto) 14.8 L Lymph # (Auto) [place] # (Auto) 0.97 H Absolute Neutrophils 8.95 H Creatinine 0.6 L Calcium 8.3 L 8.3 L AST 42 H 51 H Alkaline Phosphatase 461 H 493 H Lactate Dehydrogenase 982 H 1106 H Total Protein 5.8 L 5.8 L Albumin 2.6 L 2.6 L Globulin Albumin/Globulin Ratio 0.8 L 0.8 L Triglycerides 169 H 10/12/20 10/11/20 10/11/20 05:19 05:43 05:43 WBC RBC 3.50 L 3.48 L Hgb 9.8 L 9.1 L Hct 30.2 L 28.9 L RDW 15.9 H 15.9 H MPV Neut % (Auto) 78.1 H Lymph % (Auto) 12.3 L Lymph # (Auto) 1.32 L [place] # (Auto) Absolute Neutrophils 8.38 H Creatinine 0.6 L Calcium 7.9 L AST Alkaline Phosphatase 382 H Lactate Dehydrogenase 717 H Total Protein 5.4 L Albumin 2.3 L Globulin Albumin/Globulin Ratio 0.7 L Triglycerides 10/10/20 10/10/20 05:34 05:34 WBC RBC 3.70 L Hgb 10.4 L Hct 31.3 L RDW 16.1 H MPV 10.7 H Neut % (Auto) 81.0 H Lymph % (Auto) 10.7 L Lymph # (Auto) 1.06 L [place] # (Auto) Absolute Neutrophils 8.01 H Creatinine 0.6 L Calcium 8.5 L AST Alkaline Phosphatase 481 H Lactate Dehydrogenase 1038 H Total Protein Albumin 2.4 L Globulin 3.8 H Albumin/Globulin Ratio 0.6 L Triglycerides 152 H Meds: Medications Acetaminophen (Tylenol) 650 mg PO Q4-6HP PRN; Protocol PRN Reason: Per Pain Protocol/Fever > 101 Last Admin: 10/09/20 04:22 Dose: 650 mg Documented by: Hydrocodone Bitart/Acetaminophen ([place] 5/325mg) 1 - 2 tab PO Q4HP PRN; Protocol PRN Reason: Per Pain Protocol Last Admin: 10/12/20 21:34 Dose: 1 tab Documented by: Atorvastatin Calcium (Lipitor) 10 mg PO QDAY [facility] Last Admin: 10/13/20 08:53 Dose: 10 mg Documented by: Bisacodyl (Dulcolax) 10 mg [place] Q2-3DAYS PRN PRN Reason: Constipation Docusate Sodium (Colace) 100 mg PO BID [facility] Last Admin: 10/13/20 07:20 Dose: Not Given Documented by: Folic Acid (Folic Acid) 1 mg PO DAILY [facility] Last Admin: 10/13/20 08:53 Dose: 1 mg Documented by: Heparin Sodium (Porcine) (Heparin) 5,000 unit SQ Q12 [facility] Last Admin: 10/13/20 08:54 Dose: 5,000 unit Documented by: Ceftriaxone Sodium 2 gm/ (Dextrose) 50 mls @ 100 mls/hr IV Q24H [facility]; Protocol Last Admin: 10/13/20 08:50 Dose: 100 mls/hr Documented by: Potassium Chloride 40 meq/ (Dextrose) 520 mls @ 130 mls/hr IV UD PRN PRN Reason: K+ = or < 3.5 Acetaminophen (Ofirmev) 650 mg in 65 mls @ 130 mls/hr IV Q6HP PRN; Protocol PRN Reason: Per Pain Protocol/Fever > 101 Magnesium Sulfate (Magnesium Sulfate) 2 gm in 50 mls @ 50 mls/hr IV UD PRN PRN Reason: MG = or < 1.7 Iron Carb/Multivit/[place]/Folic Acid (Multivitamin W/Minerals) 1 tab PO DAILY [facility] Last Admin: 10/13/20 08:54 Dose: 1 tab Documented by: Melatonin (Melatonin 3mg Tablet) 3 mg PO HSP PRN PRN Reason: Insomnia Meloxicam (Mobic) 15 mg PO QDAY [facility] Last Admin: 10/13/20 08:53 Dose: 15 mg Documented by: Mirtazapine (Remeron) 15 mg PO QDAY [facility] Last Admin: 10/13/20 08:54 Dose: 15 mg Documented by: Ondansetron HCl (Zofran Odt) 4 mg SL Q4-6HP PRN; Protocol PRN Reason: Nausea And Vomiting Ondansetron HCl (Zofran) 4 mg IV Q4-6HP PRN; Protocol PRN Reason: Nausea And Vomiting Polyethylene Glycol (Miralax) 17 gm PO DAILYP PRN PRN Reason: Constipation Potassium Chloride (Klor-Con) 40 meq PO DAILYP PRN PRN Reason: K+ < 3.5 Senna/Docusate Sodium (Senna Plus Tablet) 1 tab PO [facility] Last Admin: 10/12/20 21:35 Dose: Not Given Documented by: Sodium Chloride (Saline Flush) 10 ml IV Q8 [facility] Last Admin: 10/13/20 05:28 Dose: 10 ml Documented by: Thiamine HCl (Vitamin B1) 100 mg PO DAILY [facility] Last Admin: 10/13/20 08:54 Dose: 100 mg Documented by: Tizanidine HCl (Zanaflex) 4 mg PO Q6HP PRN PRN Reason: MUSCLE SPASMS Last Admin: 10/10/20 20:48 Dose: 4 mg Documented by: Tramadol HCl (Ultram) 50 mg PO Q4-6HP PRN; Protocol PRN Reason: Per Pain Protocol Trazodone HCl (Desyrel) 50 mg PO [facility] Last Admin: 10/12/20 21:34 Dose: 50 mg Documented by: A/P Narrative A/P Narrative: * Acute viral syndrome COVID-19 with weakness fatigue. Gradual clinical improvement noted. Continue dietary intervention/therapies/supportive management. Transfer to SNF on Thursday * Complicated UTI-clinically resolved. DC antibiotics today * SIRS- with elevated leukocytosis/endorgan dysfunction including elevated LFTs. Clinically resolved * Elevated LFTs/LDH. Gradual clinical improvement. Likely secondary acute viral syndrome with hepatitis. Check WSR/CK * Mild rhabdomyolysis-repeat CK * Generalized weakness-/failure to thrive-improving with therapies * DJD continue meloxicam/tramadol/tizanidine * Hyperlipemia continue statin * Prophylaxis heparin Plan * DC antibiotics * WSR/CK * Continue directed therapies/nutrition interventions * Pre-existing medical condition management home medications * Discharge planning likely SNF on Thursday Time Spent With Patient Time: Total time spent is greater than 50% in coordination of care (as documented) at patient's floor/unit and/or counseling patient: QUALITY VTE Deep Vein Thrombosis/Pulmonary Embolism Present on Admission: No
[2020-10-13] MEDS: HYDROcodone/APAP 5/325MG TABLET PO PRN (19:31)
[2020-10-13] MEDS: SENNOSIDES/DOCUSATE SODIUM 1 TAB TABLET PO SCH (20:45)
[2020-10-13] MEDS: traZODone HCL 50 MG TABLET PO SCH (21:25)
[2020-10-14] MEDS: HYDROcodone/APAP 5/325MG TABLET PO PRN (03:40)
[2020-10-14] MEDS: 0.9 % SODIUM CHLORIDE 10 ML SYRINGE IV SCH ×3 (06:12→21:51)
--- NOTE | 2020-10-14 08:28 | Internal Med Progress Note ---
SUBJECTIVE Subjective Patient information: Note initiated : 10/14/20 at 8:25 am Service Date, if different from initiated Date: [] Patient: Larry Barger a 74 y/o M admitted on 10/08/20 for right hip pain. Chief Complaint: [] Interval history: History of present illness: Mr. Barger is a 74 year old M with history of HLD/chronic pain/anxiety who has been experiencing significant right hip along with right knee pain that has gradually limited his activities of daily living. He lives alone and over the past 4-month has not been able to take care of self due to pain related restricting mobility. Over the last 4 days patient has been so weak that he has been laying on the blanket on the floor and has been crawling to get to the bathroom and food. In the last 24 hours he has not eating or drank anything. He was brought into the ER initial work-up was consistent with severe dehydration. White count 15,000 but no clear source of infection identified. Patient was started on antibiotic coverage after cultures were drawn. Patient received crystalloids. Lactic acid 2.1, elevated CK and procalcitonin. UA significant for pyuria. Chest imaging suspicious of interstitial infiltrate. Hospital service was consulted for admission in light of above At the time of my evaluation patient is very anxious and was able to endorse history as above. He mentions about his degenerative knee which he has not been able to see orthopedics. He since has been struggling to get by on a daily basis. He otherwise denies fever, chills, bloody stool, bloody urine, hemoptysis, headache, rash. Denies joint swelling but endorses to bilateral kn ee pain and right groin pain. 10/09-patient doing a lot better. Ongoing therapies. Improved leukocytosis at 11.7 on antibiotic coverage. Mentation improved. LFTs downtrending. COVID-19 positive. On contact precautions. 10/10-patient doing well. Tolerating diet. Ongoing physical therapy. We will continue dietary intervention/therapies as tolerated. Case management coordinate SNF transfer due to high risk subsequent injury/self-care deficit and fall risk 10/11-patient clinically improving. Tolerating diet and ongoing physical therapy. Improved weakness. Stable hemodynamics and labs. Interval chest imaging unremarkable. No fever chills or concerns per staff. 10/12-patient doing well. No overnight events. No concerns per staff. No fever chills nausea vomiting. Ongoing therapies. Tolerating diet. Case management coordinating transfer to [facility]. 10/13 white count elevated at 12. However on room air. LFTs downtrending however LDH remains persistently elevated. Check WSR/CK. Possibly viral mediated elevation. Álvarez's catheter discontinued. Self voiding. Tolerating diet and ongoing physical therapy. T-max 100.8. Currently on room air. Stable hemodynamics. 10/14-patient doing well. No overnight events. Stable hemodynamics. Afebrile. Tolerating diet. Ongoing physical therapy. LFTs gradually downtrending. Anticipate discharge to [facility] in 24 hours. Off antibiotics. Constitutional Vitals: Vital Signs Temp Pulse Resp BP Pulse Ox 98.5 F 76 16 139/80 98 10/14/20 07:05 10/14/20 07:05 10/14/20 07:05 10/14/20 07:05 10/14/20 07:05 Period Temp Pulse Resp BP Sys/Hair Pulse Ox Last 24 Hr 98.0 F-99.1 F 76-85 16-18 124-139/71-98 98-100 Intake and Output 10/13/20 10/14/20 10/14/20 21:59 05:59 13:59 Intake Total 440 480 Output Total 650 125 Balance -210 355 Weight 58.786 kg alert oriented Nonlabored breathing Nondistended abdomen Ambulating with assistance Intake & Output: Intake & Output 10/13/20 10/14/20 10/14/20 21:59 05:59 13:59 Intake Total 440 480 Output Total 650 125 Balance -210 355 Weight 58.786 kg Intake: Nourishment/Supplement quantity 240 (ml) Oral 200 480 Output: Void Amount 650 125 Other: Meal Dinner Percent of Meal Consumed 50% Nourishment/Supplement name ensure Urine Appearance Clear Sediment Mucous Threads Urine Color Dark Yellow Light Sondra Urine Odor Strong Stool Size Moderate Smear Stool Color Brown Brown Stool Consistency Soft Soft Liquid # Bowel Movements 1 OBJ DATA Labs CBC & Chem 7: 10/13/20 05:55 10/13/20 05:54 Labs: Abnormal Lab Results 10/13/20 10/13/20 10/13/20 05:55 05:54 05:54 WBC 12.0 H RBC 3.58 L Hgb 9.6 L Hct 29.4 L RDW 16.0 H Neut % (Auto) Lymph % (Auto) 14.8 L Lymph # (Auto) [place] # (Auto) 0.97 H Absolute Neutrophils 8.95 H ESR 82 H Creatinine Calcium AST Alkaline Phosphatase Lactate Dehydrogenase Total Creatine Kinase 10 L Total Protein Albumin Albumin/Globulin Ratio Triglycerides 10/13/20 10/12/20 10/12/20 05:54 05:19 05:19 WBC RBC 3.50 L Hgb 9.8 L Hct 30.2 L RDW 15.9 H Neut % (Auto) 78.1 H Lymph % (Auto) 12.3 L Lymph # (Auto) 1.32 L [place] # (Auto) Absolute Neutrophils 8.38 H ESR Creatinine 0.6 L Calcium 8.3 L 8.3 L AST 42 H 51 H Alkaline Phosphatase 461 H 493 H Lactate Dehydrogenase 982 H 1106 H Total Creatine Kinase Total Protein 5.8 L 5.8 L Albumin 2.6 L 2.6 L Albumin/Globulin Ratio 0.8 L 0.8 L Triglycerides 169 H Meds: Medications Acetaminophen (Tylenol) 650 mg PO Q4-6HP PRN; Protocol PRN Reason: Per Pain Protocol/Fever > 101 Last Admin: 10/09/20 04:22 Dose: 650 mg Documented by: Hydrocodone Bitart/Acetaminophen ([place] 5/325mg) 1 - 2 tab PO Q4HP PRN; Protocol PRN Reason: Per Pain Protocol Last Admin: 10/14/20 03:40 Dose: 1 tab Documented by: Atorvastatin Calcium (Lipitor) 10 mg PO QDAY [facility] Last Admin: 10/13/20 08:53 Dose: 10 mg Documented by: Bisacodyl (Dulcolax) 10 mg [place] Q2-3DAYS PRN PRN Reason: Constipation Docusate Sodium (Colace) 100 mg PO BID [facility] Last Admin: 10/13/20 20:45 Dose: Not Given Documented by: Folic Acid (Folic Acid) 1 mg PO DAILY [facility] Last Admin: 10/13/20 08:53 Dose: 1 mg Documented by: Heparin Sodium (Porcine) (Heparin) 5,000 unit SQ Q12 [facility] Last Admin: 10/13/20 21:26 Dose: 5,000 unit Documented by: Potassium Chloride 40 meq/ (Dextrose) 520 mls @ 130 mls/hr IV UD PRN PRN Reason: K+ = or < 3.5 Acetaminophen (Ofirmev) 650 mg in 65 mls @ 130 mls/hr IV Q6HP PRN; Protocol PRN Reason: Per Pain Protocol/Fever > 101 Magnesium Sulfate (Magnesium Sulfate) 2 gm in 50 mls @ 50 mls/hr IV UD PRN PRN Reason: MG = or < 1.7 Iron Carb/Multivit/[place]/Folic Acid (Multivitamin W/Minerals) 1 tab PO DAILY [facility] Last Admin: 10/13/20 08:54 Dose: 1 tab Documented by: Melatonin (Melatonin 3mg Tablet) 3 mg PO HSP PRN PRN Reason: Insomnia Meloxicam (Mobic) 15 mg PO QDAY [facility] Last Admin: 10/13/20 08:53 Dose: 15 mg Documented by: Mirtazapine (Remeron) 15 mg PO QDAY [facility] Last Admin: 10/13/20 08:54 Dose: 15 mg Documented by: Ondansetron HCl (Zofran Odt) 4 mg SL Q4-6HP PRN; Protocol PRN Reason: Nausea And Vomiting Ondansetron HCl (Zofran) 4 mg IV Q4-6HP PRN; Protocol PRN Reason: Nausea And Vomiting Polyethylene Glycol (Miralax) 17 gm PO DAILYP PRN PRN Reason: Constipation Potassium Chloride (Klor-Con) 40 meq PO DAILYP PRN PRN Reason: K+ < 3.5 Senna/Docusate Sodium (Senna Plus Tablet) 1 tab PO [facility] Last Admin: 10/13/20 20:45 Dose: Not Given Documented by: Sodium Chloride (Saline Flush) 10 ml IV Q8 [facility] Last Admin: 10/14/20 06:12 Dose: 10 ml Documented by: Thiamine HCl (Vitamin B1) 100 mg PO DAILY [facility] Last Admin: 10/13/20 08:54 Dose: 100 mg Documented by: Tizanidine HCl (Zanaflex) 4 mg PO Q6HP PRN PRN Reason: MUSCLE SPASMS Last Admin: 10/10/20 20:48 Dose: 4 mg Documented by: Tramadol HCl (Ultram) 50 mg PO Q4-6HP PRN; Protocol PRN Reason: Per Pain Protocol Trazodone HCl (Desyrel) 50 mg PO [facility] Last Admin: 10/13/20 21:25 Dose: 50 mg Documented by: A/P Narrative A/P Narrative: * Acute viral syndrome COVID-19 with weakness fatigue. Much improved with aggressive nutrition/therapies. Await SNF transfer for continued posthospitalization rehab on Thursday * Complicated UTI-clinically resolved. Completed antibiotics * SIRS- with elevated leukocytosis/endorgan dysfunction -fully resolved * Acute viral hepatitis secondary to Covid with elevated LFTs/LDH. Gradual clinical improvement. * Mild rhabdomyolysis-repeat CK normal * Generalized weakness-/failure to thrive-improving with therapies * DJD continue meloxicam/tramadol/tizanidine * Hyperlipemia continue statin * Prophylaxis heparin Plan * Continue directed therapies/nutrition interventions * Pre-existing medical condition management home medications * Discharge planning likely SNF on Thursday Time Spent With Patient Time: Total time spent is greater than 50% in coordination of care (as documented) at patient's floor/unit and/or counseling patient: QUALITY VTE Deep Vein Thrombosis/Pulmonary Embolism Present on Admission: No
[2020-10-14] MEDS: MULTIVIT,THER IRON,CA,FA & MIN 1 TABLET PO SCH (08:34)
[2020-10-14] MEDS: ATORVASTATIN 10 MG TABLET PO SCH (08:36)
[2020-10-14] MEDS: FOLIC ACID 1 MG TABLET PO SCH (08:36)
[2020-10-14] MEDS: THIAMINE 100 MG TABLET PO SCH (08:36)
[2020-10-14] MEDS: MELOXICAM 7.5 MG TABLET PO SCH (08:36)
[2020-10-14] MEDS: MIRTAZAPINE 15 MG TABLET PO SCH (08:37)
[2020-10-14] MEDS: HEPARIN 5,000 UNIT/ML VIAL SQ SCH ×2 (08:37→21:52)
[2020-10-14] MEDS: DOCUSATE SODIUM 100 MG CAPSULE PO SCH ×2 (08:37→20:46)
[2020-10-14] MEDS: traMADol 50 MG TABLET PO PRN (08:45)
--- NOTE | 2020-10-14 12:57 | Internal Med Progress Note ---
SUBJECTIVE Subjective Patient information: Note initiated : 10/14/20 at 12:54 pm Service Date, if different from initiated Date: [] Patient: Larry Barger a 74 y/o M admitted on 10/08/20 for right hip pain. Chief Complaint: [] Interval history: History of present illness: Mr. Barger is a 74 year old M with history of HLD/chronic pain/anxiety who has been experiencing significant right hip along with right knee pain that has gradually limited his activities of daily living. He lives alone and over the past 4-month has not been able to take care of self due to pain related restricting mobility. Over the last 4 days patient has been so weak that he has been laying on the blanket on the floor and has been crawling to get to the bathroom and food. In the last 24 hours he has not eating or drank anything. He was brought into the ER initial work-up was consistent with severe dehydration. White count 15,000 but no clear source of infection identified. Patient was started on antibiotic coverage after cultures were drawn. Patient received crystalloids. Lactic acid 2.1, elevated CK and procalcitonin. UA significant for pyuria. Chest imaging suspicious of interstitial infiltrate. Hospital service was consulted for admission in light of above At the time of my evaluation patient is very anxious and was able to endorse history as above. He mentions about his degenerative knee which he has not been able to see orthopedics. He since has been struggling to get by on a daily basis. He otherwise denies fever, chills, bloody stool, bloody urine, hemoptysis, headache, rash. Denies joint swelling but endorses to bilateral k nee pain and right groin pain. 10/09-patient doing a lot better. Ongoing therapies. Improved leukocytosis at 11.7 on antibiotic coverage. Mentation improved. LFTs downtrending. COVID-19 positive. On contact precautions. 10/10-patient doing well. Tolerating diet. Ongoing physical therapy. We will continue dietary intervention/therapies as tolerated. Case management coordinate SNF transfer due to high risk subsequent injury/self-care deficit and fall risk 10/11-patient clinically improving. Tolerating diet and ongoing physical therapy. Improved weakness. Stable hemodynamics and labs. Interval chest imaging unremarkable. No fever chills or concerns per staff. 2/12-patient doing well. No overnight events. No concerns per staff. No fever chills nausea vomiting. Ongoing therapies. Tolerating diet. Case management coordinating transfer to SNF. 10/13 white count elevated at 12. However on room air. LFTs downtrending however LDH remains persistently elevated. Check WSR/CK. Possibly viral mediated elevation. Álvarez's catheter discontinued. Self voiding. Tolerating d iet and ongoing physical therapy. T-max 100.8. Currently on room air. Stable hemodynamics. 10/14-patient doing well. No overnight events. Stable hemodynamics. Afebrile. Tolerating diet. Ongoing physical therapy. LFTs gradually downtrending. Anticipate discharge to SNF in 24 hours. Off antibiotics. Constitutional Vitals: Vital Signs Temp Pulse Resp BP Pulse Ox 98.1 F 89 16 128/88 95 10/14/20 11:12 10/14/20 11:12 10/14/20 11:12 10/14/20 11:12 10/14/20 11:12 Period Temp Pulse Resp BP Sys/Hair Pulse Ox Last 24 Hr 98.1 F-99.1 F 76-89 16-18 124-139/71-98 95-99 Intake and Output 10/13/20 10/14/20 10/14/20 21:59 05:59 13:59 Intake Total 440 480 Output Total 650 125 300 Balance -210 355 -300 Weight 58.786 kg Intake & Output: Intake & Output 10/13/20 10/14/20 10/14/20 21:59 05:59 13:59 Intake Total 440 480 Output Total 650 125 300 Balance -210 355 -300 Weight 58.786 kg Intake: Nourishment/Supplement quantity 240 (ml) Oral 200 480 Output: Void Amount 650 125 300 Other: Meal Dinner Percent of Meal Consumed 50% Nourishment/Supplement name ensure Urine Appearance Clear Sediment Clear Mucous Threads Urine Color Dark Yellow Light Sondra Dark Yellow Urine Odor Strong Stool Size Moderate Smear Stool Color Brown Brown Stool Consistency Soft Soft Liquid # Bowel Movements 1 Exam: General: Alert, Awake, No acute Distress Eyes/N/T: EOMI, Head/Neck: neck supple, CV: RRR, No murmurs, Pulm: Clear b/l, no wheezing/rhonchi/rales Abd: soft, nontender, +BS x4 Ext: no clubbing/cyanosis/edema Neuro: Alert, no focal deficits, moves all extremities, Skin: warm/dry OBJ DATA Labs CBC & Chem 7: 10/13/20 05:55 10/13/20 05:54 Labs: Abnormal Lab Results 10/13/20 10/13/20 10/13/20 05:55 05:54 05:54 WBC 12.0 H RBC 3.58 L Hgb 9.6 L Hct 29.4 L RDW 16.0 H Neut % (Auto) Lymph % (Auto) 14.8 L Lymph # (Auto) Mineral # (Auto) 0.97 H Absolute Neutrophils 8.95 H ESR 82 H Creatinine Calcium AST Alkaline Phosphatase Lactate Dehydrogenase Total Creatine Kinase 10 L Total Protein Albumin Albumin/Globulin Ratio Triglycerides 10/13/20 10/12/20 10/12/20 05:54 05:19 05:19 WBC RBC 3.50 L Hgb 9.8 L Hct 30.2 L RDW 15.9 H Neut % (Auto) 78.1 H Lymph % (Auto) 12.3 L Lymph # (Auto) 1.32 L Mineral # (Auto) Absolute Neutrophils 8.38 H ESR Creatinine 0.6 L Calcium 8.3 L 8.3 L AST 42 H 51 H Alkaline Phosphatase 461 H 493 H Lactate Dehydrogenase 982 H 1106 H Total Creatine Kinase Total Protein 5.8 L 5.8 L Albumin 2.6 L 2.6 L Albumin/Globulin Ratio 0.8 L 0.8 L Triglycerides 169 H Meds: Medications Acetaminophen (Tylenol) 650 mg PO Q4-6HP PRN; Protocol PRN Reason: Per Pain Protocol/Fever > 101 Last Admin: 10/09/20 04:22 Dose: 650 mg Documented by: Hydrocodone Bitart/Acetaminophen ([place] 5/325mg) 1 - 2 tab PO Q4HP PRN; Protocol PRN Reason: Per Pain Protocol Last Admin: 10/14/20 03:40 Dose: 1 tab Documented by: Atorvastatin Calcium (Lipitor) 10 mg PO QDAY [facility] Last Admin: 10/14/20 08:36 Dose: 10 mg Documented by: Bisacodyl (Dulcolax) 10 mg ME Q2-3DAYS PRN PRN Reason: Constipation Docusate Sodium (Colace) 100 mg PO BID [facility] Last Admin: 10/14/20 08:37 Dose: Not Given Documented by: Folic Acid (Folic Acid) 1 mg PO DAILY [facility] Last Admin: 10/14/20 08:36 Dose: 1 mg Documented by: Heparin Sodium (Porcine) (Heparin) 5,000 unit SQ Q12 [facility] Last Admin: 10/14/20 08:37 Dose: 5,000 unit Documented by: Potassium Chloride 40 meq/ (Dextrose) 520 mls @ 130 mls/hr IV UD PRN PRN Reason: K+ = or < 3.5 Acetaminophen (Ofirmev) 650 mg in 65 mls @ 130 mls/hr IV Q6HP PRN; Protocol PRN Reason: Per Pain Protocol/Fever > 101 Magnesium Sulfate (Magnesium Sulfate) 2 gm in 50 mls @ 50 mls/hr IV UD PRN PRN Reason: MG = or < 1.7 Iron Carb/Multivit/[place]/Folic Acid (Multivitamin W/Minerals) 1 tab PO DAILY [facility] Last Admin: 10/14/20 08:34 Dose: 1 tab Documented by: Melatonin (Melatonin 3mg Tablet) 3 mg PO HSP PRN PRN Reason: Insomnia Meloxicam (Mobic) 15 mg PO QDAY [facility] Last Admin: 10/14/20 08:36 Dose: 15 mg Documented by: Mirtazapine (Remeron) 15 mg PO QDAY [facility] Last Admin: 10/14/20 08:37 Dose: 15 mg Documented by: Ondansetron HCl (Zofran Odt) 4 mg SL Q4-6HP PRN; Protocol PRN Reason: Nausea And Vomiting Ondansetron HCl (Zofran) 4 mg IV Q4-6HP PRN; Protocol PRN Reason: Nausea And Vomiting Polyethylene Glycol (Miralax) 17 gm PO DAILYP PRN PRN Reason: Constipation Potassium Chloride (Klor-Con) 40 meq PO DAILYP PRN PRN Reason: K+ < 3.5 Senna/Docusate Sodium (Senna Plus Tablet) 1 tab PO HS [facility] Last Admin: 10/13/20 20:45 Dose: Not Given Documented by: Sodium Chloride (Saline Flush) 10 ml IV Q8 [facility] Last Admin: 10/14/20 06:12 Dose: 10 ml Documented by: Thiamine HCl (Vitamin B1) 100 mg PO DAILY [facility] Last Admin: 10/14/20 08:36 Dose: 100 mg Documented by: Tizanidine HCl (Zanaflex) 4 mg PO Q6HP PRN PRN Reason: MUSCLE SPASMS Last Admin: 10/10/20 20:48 Dose: 4 mg Documented by: Tramadol HCl (Ultram) 50 mg PO Q4-6HP PRN; Protocol PRN Reason: Per Pain Protocol Last Admin: 10/14/20 08:45 Dose: 50 mg Documented by: Trazodone HCl (Desyrel) 50 mg PO HS [facility] Last Admin: 10/13/20 21:25 Dose: 50 mg Documented by: A/P Narrative A/P Narrative: A: *Acute viral syndrome COVID-19 with weakness/fatigue -Much improved with aggressive nutrition/therapies. *Complicated UTI-clinically resolved. Completed antibiotics *SIRS- with elevated leukocytosis/endorgan dysfunction -fully resolved *Acute viral hepatitis secondary to Covid with elevated LFTs/LDH. Gradual clinical improvement. *Mild rhabdomyolysis-repeat CK normal *Generalized weakness-/failure to thrive-improving with therapies *DJD continue meloxicam/tramadol/tizanidine *Hyperlipemia continue statin Plan: -Continue directed therapies/nutrition interventions -pre-existing medical condition management home medications -Discharge planning likely SNF on Thursday -ppx: Prophylaxis heparin Time Spent With Patient Time: Total time spent is greater than 50% in coordination of care (as documented) at patient's floor/unit and/or counseling patient: QUALITY VTE Deep Vein Thrombosis/Pulmonary Embolism Present on Admission: No
--- NOTE | 2020-10-14 12:58 | Discharge Summary ---
Discharge Provider Provider Patient information: Note initiated : 10/14/20 at 12:57 pm Service Date, if different from initiated Date: [] Patient: Larry Barger 74 y/o M admitted on 10/08/20 for right hip pain. Chief Complaint: [] Date of admission: 10/08/20 20:37 Discharge date: 10/15/20 Primary care physician: PCP No Consults: 10/08/20 Consult to Physician [CONS] Stat Comment: Consulting Provider: Everton Bermeo Reason For Exam: Physician to Consult Discharge Meds Discharge Medications Home Medications atorvastatin 10 mg PO QDAY 10/08/20 [History Confirmed 10/08/20 Last Taken Unknown] meloxicam 15 mg PO QDAY 10/08/20 [History Confirmed 10/08/20 Last Taken Unknown] mirtazapine 15 mg PO QDAY 10/08/20 [History Confirmed 10/08/20 Last Taken Unknown] tizanidine 4 mg PO Q6H PRN 10/08/20 [History Confirmed 10/08/20 Last Taken Unknown] tramadol 50 mg PO Q8H PRN 10/08/20 [History Confirmed 10/08/20 Last Taken Unknown] trazodone 50 mg PO HS 10/08/20 [History Confirmed 10/09/20 Last Taken 10/08/20 22:06] COURSE Hospital Course Hospital course: History of present illness: Mr. Barger is a 74 year old M with history of HLD/chronic pain/anxiety who has been experiencing significant right hip along with right knee pain that has gradually limited his activities of daily living. He lives alone and over the past 4-month has not been able to take care of self due to pain related restricting mobility. Over the last 4 days patient has been so weak that he has been laying on the blanket on the floor and has been crawling to get to the bathroom and food. In the last 24 hours he has not eating or drank anything. He was brought into the ER initial work-up was consistent with severe dehydration. White count 15,000 but no clear source of infection identified. Patient was started on antibiotic coverage after cultures were drawn. Patient received crystalloids. Lactic acid 2.1, elevated CK and procalcitonin. UA significant for pyuria. Chest imaging suspicious of interstitial infiltrate. Hospital service was consulted for admission in light of above At the time of my evaluation patient is very anxious and was able to endorse history as above. He mentions about his degenerative knee which he has not been able to see orthopedics. He since has been struggling to get by on a daily basis. He otherwise denies fever, chills, bloody stool, bloody urine, hemoptysis, headache, rash. Denies joint swelling but endorses to bilateral knee pain and right groin pain. 10/09-patient doing a lot better. Ongoing therapies. Improved leukocytosis at 11.7 on antibiotic coverage. Mentation improved. LFTs downtrending. COVID-19 positive. On contact precautions. 10/10-patient doing well. Tolerating diet. Ongoing physical therapy. We will continue dietary intervention/therapies as tolerated. Case management coordinate SNF transfer due to high risk subsequent injury/self-care deficit and fall risk 10/11-patient clinically improving. Tolerating diet and ongoing physical therapy. Improved weakness. Stable hemodynamics and labs. Interval chest imaging unremarkable. No fever chills or concerns per staff. 10/12-patient doing well. No overnight events. No concerns per staff. No fever chills nausea vomiting. Ongoing therapies. Tolerating diet. Case management coordinating transfer to SNF. 10/13 white count elevated at 12. However on room air. LFTs downtrending however LDH remains persistently elevated. Check WSR/CK. Possibly viral mediated elevation. Álvarez's catheter discontinued. Self voiding. Tolerating diet and ongoing physical therapy. T-max 100.8. Currently on room air. Stable hemodynamics. 10/14-patient doing well. No overnight events. Stable hemodynamics. Afebrile. Tolerating diet. Ongoing physical therapy. LFTs gradually downtrending. Anticipate discharge to SNF in 24 hours. Off antibiotics. 10/15 No overnight event or new complaints. Patient stable for discharge to SNF. A: *Acute viral syndrome COVID-19 with weakness/fatigue *Complicated UTI *SIRS- with elevated leukocytosis/endorgan dysfunction *Acute viral hepatitis secondary to Covid with elevated LFTs/LDH. *Mild rhabdomyolysis-repeat CK normal *Generalized weakness-/failure to thrive-improving with therapies Discharge diagnosis: Acute viral syndrome Covid with weakness fatigue complicated UTI Sirs acute Secondary discharge diagnosis: Acute viral syndrome Covid with weakness fatigue complicated UTI Sirs acute viral hepatitis mild rhabdomyolysis generalized weakness failure to thrive Time Spent with Patient Time attestation: Total time spent providing and/or coordinating discharge services: Time spent: Greater than 30 minutes EXAM Constitutional Vitals: Temp Pulse Resp BP Pulse Ox 98.1 F 89 16 128/88 95 10/14/20 11:12 10/14/20 11:12 10/14/20 11:12 10/14/20 11:12 10/14/20 11:12 Discharge Data Data Completed and Pending Labs on day of discharge: Labs from last 24 hours 10/13/20 05:54 ESR 82 H Discharge Plan Patient/Caregiver Discharge Instructions Activity: increase activity as tolerated Diet: Regular Diet Instructions: COVID-19, Urinary Tract Infection in Older Adults (DC) Activity Restrictions/Additional Instructions: Resume home diet as tolerated. Take all meals up in chair sitting at 90 degrees. Activity as per physical and occupational therapy Increase activity as tolerated. Continue fall precautions. Take all medication as directed. This discharge packet is provided to you to help keep you informed about your care. We want to ensure you get everything you need when you go home. You will also be receiving a call from us in a few days to follow up with you and see how you are doing since your discharge. This gives us a chance to listen to any concerns you maybe experiencing since you were discharged or any additional needs you may have, as well as providing us feedback on your care experience. We strive to always provide excellent care and thank you for your feedback and for choosing [facility]. Prescriptions: Continued trazodone 50 mg Tablet 50 mg PO HS RF: 0 atorvastatin 10 mg tablet 10 mg PO QDAY RF: 0 meloxicam 15 mg tablet 15 mg PO QDAY RF: 0 tramadol 50 mg Tablet 50 mg PO Q8H PRN (Reason: Pain) RF: 0 mirtazapine 15 mg Tablet 15 mg PO QDAY RF: 0 tizanidine 4 mg Capsule 4 mg PO Q6H PRN (Reason: .) RF: 0 Follow Up Plan Follow up with: No,PCP [Primary Care Provider] - Patient Disposition: Xfer SNF Prognosis: Fair Rehab Potential: Fair I certify that the patient requires SNF services: Yes Overall status at discharge: patient is progressing back to baseline Discharge Orders: Discharge Order (Routine); Ordered 10/15/20 Ordered By: Adiel Lloyd Kanooth QUALITY VTE Deep Vein Thrombosis/Pulmonary Embolism Present on Admission: No
[2020-10-14] MEDS: SENNOSIDES/DOCUSATE SODIUM 1 TAB TABLET PO SCH (20:46)
[2020-10-14] MEDS: traZODone HCL 50 MG TABLET PO SCH (21:52)
[2020-10-15] MEDS: 0.9 % SODIUM CHLORIDE 10 ML SYRINGE IV SCH (06:10)
[2020-10-15] MEDS: traMADol 50 MG TABLET PO PRN (06:14)
[2020-10-15] MEDS: MELOXICAM 7.5 MG TABLET PO SCH (08:19)
[2020-10-15] MEDS: DOCUSATE SODIUM 100 MG CAPSULE PO SCH (08:19)
[2020-10-15] MEDS: ATORVASTATIN 10 MG TABLET PO SCH (08:20)
[2020-10-15] MEDS: THIAMINE 100 MG TABLET PO SCH (08:20)
[2020-10-15] MEDS: FOLIC ACID 1 MG TABLET PO SCH (08:20)
[2020-10-15] MEDS: MULTIVIT,THER IRON,CA,FA & MIN 1 TABLET PO SCH (08:20)
[2020-10-15] MEDS: HEPARIN 5,000 UNIT/ML VIAL SQ SCH (08:20)
[2020-10-15] MEDS: MIRTAZAPINE 15 MG TABLET PO SCH (08:20)
[2020-10-15] MEDS: HYDROcodone/APAP 5/325MG TABLET PO PRN (08:33)
== END 2020-10-15 09:31 | DRG 178 ==
LOC: ED 10:47 → MEDSUR 20:37
PROVIDERS: ADMIT Internal Medicine; ATTEND Internal Medicine